=== PATIENT | male | born 1940 | race Caucasian/White ===

== ENCOUNTER 2017-04-07 13:09 | Inpatient (IN) ==
[2017-04-07] MEDS ORDERED: 0.9 % Sodium Chloride 1,000 ML IVC ONE (13:22)
[2017-04-07 13:34] LABS: Bilirubin,Urine Negative (Negative); Blood,Urine Negative (Negative); Clarity,Urine Cloudy (Clear); Color,Urine Yellow (Yellow); Glucose,Urine (UA) Normal (Normal); Ketones,Urine Negative (Negative); Leukocyte Esterase,Urine Negative (Negative); Nitrite,Urine Negative (Negative); PH,Urine 7.5 pH Units (5.0-8.0); Protein,Urine Negative (Neg-Trace); Specific Gravity,Urine 1.021 (1.010-1.025); Urobilinogen,Urine Normal (Normal)
--- NOTE | 2017-04-07 13:34 | Emergency Department Note ---
Disposition Clinical Impression: Hyponatremia, Generalized weakness Disposition: Admitted As Inpatient Condition: Fair Referrals: Kelly Willett MD [Primary Care Provider] - Forms: ED Satisfaction Letter Time of Disposition: 16:42 Weakness HPI - General Chief complaint: ED Weakness Stated complaint: weakness Time Seen by Provider: 04/07/17 13:13 Source: EMS Limitations: language barrier Nursing Notes Reviewed: Yes Vital Signs Reviewed: Yes - History of Present Illness HPI Narrative: The patient has a history of melanoma and he is currently undergoing chemotherapy with last dose about 1-1/2 weeks ago and was supposed to have another dose of chemotherapy today but he had too much weakness that he presented to the emergency department. His current weakness is present for the last 4 days and constant and nothing makes it better or worse and no medication specifically used. I did review the previous record and is seen here last month for similar symptoms. I did review the CT and MRI scans are done recently. The patient denies any vomiting or diarrhea, fevers. He does have melanoma on the left side of the forehead. No localized numbness or weakness of the extremities but does have generalized weakness. No slurred speech, facial droop or confusion. No rhinorrhea, cough, sneezing or blurred vision. No blood in the urine or stool. No pain of the extremities and no skin rash or bruising of the skin except for the melanoma on the left side of his scalp. Social history: Does occasionally smoke, no alcohol or drugs Pain Scale: 5 - Related Data Home Medications Medication Instructions Recorded Confirmed Budesonide/Formoterol 160/4.5 2 puff IH BIDR 05/06/15 04/07/17 [Symbicort 160/4.5] Bupropion HCl [Wellbutrin Xl] 300 mg PO QAM 05/06/15 04/07/17 Citalopram Hydrobromide [Celexa] 40 mg PO QAM 05/06/15 04/07/17 Montelukast [Singulair] 10 mg PO QPM 05/06/15 04/07/17 Ranitidine HCl [Zantac] 150 mg PO BID 05/06/15 04/07/17 Simvastatin [Zocor] 40 mg PO QPM 05/06/15 04/07/17 Albuterol Neb [Proventil Neb] 2.5 mg IH Q4HR PRN 07/01/15 04/07/17 Albuterol Sulfate [Albuterol 2 puff IH Q6HR PRN 07/01/15 04/07/17 Inhaler] Cholecalciferol (Vitamin D3) 2,000 unit PO DAILY 07/01/15 04/07/17 [Vitamin D3] Oxygen 2 l NS AD PRN 07/01/15 04/07/17 Tamsulosin [Flomax] 0.4 mg PO DAILY 09/09/15 04/07/17 Docusate Sodium [Stool Softener] 250 mg PO BID PRN 02/13/17 04/07/17 Dexamethasone [Decadron] 4 mg PO DAILY 04/07/17 04/07/17 Lactose-Reduced Food [Ensure 1 bottle PO QID 04/07/17 04/07/17 Liquid] Levothyroxine [Synthroid] 25 mcg PO 0630 04/07/17 04/07/17 Nitroglycerin [Nitrostat] 0.4 mg SL Q5M PRN 04/07/17 04/07/17 Previous Rx's Medication Instructions Recorded Aspirin Enteric Coated [Aspirin EC] 325 mg PO DAILY #21 tablet. 06/30/15 Allergies Allergy/AdvReac Type Severity Reaction Status Date / Time No Known Allergies Allergy Verified 09/09/15 06:55 Review of Systems: As Per HPI Past Medical History - Past Medical History Medical history: Reports: cancer, COPD, coronary artery disease, CVA, GERD, hyperlipidemia, hypertension, myocardial infarction, other Psychiatric history: Reports: anxiety, depression - Social History Smoking Status: Current some day smoker Smokeless Tobacco Status: No Alcohol use: Reports: none Drug use: Reports: none Physical Exam CONSTITUTIONAL: The patient is tired appearing, weak appearing, breathing comfortably, does have evidence of melanoma on the left side of the scalp. No focal neurologic signs. HEAD: Normocephalic; atraumatic. EYES: PERRL, EOMI, no scleral icterus NOSE: The nose is normal in appearance without rhinorrhea NECK: Supple without rigidity, no SANAM RESP: Normal chest excursion with respiration; breath sounds clear and equal bilaterally; no wheezes, rhonchi, or rales CARD: Regular rhythm, without murmurs, rub or gallop ABD: Non-distended; non-tender, soft, without rigidity, rebound or guarding SKIN: Normal for age and race; warm and dry; no apparent lesions, no rash NEUROLOGICAL: Patient is alert and oriented times three. Cranial nerves III- XII are intact. Sensory and motor functions are intact. Strength is 5/5 for flexion and extension in all 4 extremities. . Finger to nose testing is equal and normal bilaterally. Extremities: Pulses 2+ and equal all 4 extremities, no pain or swelling of the lower extremities - General Limitations: language barrier General appearance: alert Course Vital Signs Temperature 98.1 F 04/07/17 13:12 Pulse Rate 71 04/07/17 13:12 Respiratory Rate 16 04/07/17 13:12 Blood Pressure 164/113 04/07/17 13:12 O2 Sat by Pulse Oximetry 95 04/07/17 13:12 Temperature 98.1 F 04/07/17 13:12 Pulse Rate 71 04/07/17 13:12 Respiratory Rate 16 04/07/17 13:12 Blood Pressure 164/113 04/07/17 13:12 O2 Sat by Pulse Oximetry 95 04/07/17 13:12 Oxygen Delivery Oxygen Delivery Room Air Weakness - MDM Narrative Medical decision making narrative: I did labs ordered which are pending, chest x-ray, IV fluids and will reassess. The patient does not have any focal neurologic signs or symptoms so I will not get any imaging of the brain at this time. 1334 I did review the EKG done by triage does show normal sinus rhythm with a rate of 88 and some nonspecific T-wave changes which are likely baseline artifact. There are not anatomically consistent finding suggestive of ischemia. The patient's labs are normal except for some leukopenia and this can be further evaluated as an outpatient. I do not see evidence of pancreatitis. I will perform a rectal exam. 1425 I did review the lab results which do show hyponatremia and I did speak with the hospitalist who accepted the patient for admission because the patient's said she is unable to care for him at home. The liver a mobile home. He is not ambulatory an adequate degree. The patient does represent a significant fall risk. I discussed with the hospitalist but I will add on labs for SIADH and she will follow the results of these labs as inpatient 1642 - Medical Records Medical records reviewed: Yes I reviewed the patient's medical records. - Lab Data Lab results reviewed: Yes I reviewed the patient's lab results. Result diagrams: 04/07/17 14:03 04/07/17 14:03 Lab Results 04/07/17 04/07/17 04/07/17 Range/Units 13:19 13:19 14:03 WBC 13.5 H (4.3-11.1) K/mcL RBC 4.52 (4.19-5.50) M/mcL Hgb 14.0 (12.9-16.9) g/dL Hct 41.7 (37.5-50.1) % MCV 92.3 (83.0-100.0) fL MCH 31.0 (28.0-33.3) pg MCHC 33.6 (31.6-35.5) g/dL RDW 13.8 (11.5-14.5) % Plt Count 308 (140-400) K/mcL MPV 9.0 L (9.4-12.4) fL Immature Gran % 1.2 (0-4) % Seg Neutrophils % 80.9 % Lymphocytes % 10.9 % Monocytes % 5.9 % Eosinophils % 0.9 % Basophils % 0.2 % Neutrophils # 10.9 H (1.6-8.9) K/mcL Lymphocytes # 1.5 (0.6-4.6) K/mcL Monocytes # 0.8 (0.0-1.3) K/mcL Eosinophils # 0.1 (0.0-0.6) K/mcL Basophils # 0.0 (0.0-0.2) K/mcL Sodium (136-145) mEq/L Potassium (3.5-5.1) mEq/L Chloride (98-107) mEq/L Carbon Dioxide (23-29) mEq/L BUN (8-23) mg/dL Creatinine (0.70-1.30) mg/dL Est GFR ( Amer) (> 60) Est GFR (Non-Af Amer) (> 60) BUN/Creatinine Ratio (6-26) Glucose (70-105) mg/dL Calculated Osmolality (280-300) Calcium (8.6-10.3) mg/dL Total Bilirubin (0.3-1.0) mg/dL AST (13-39) Units/L ALT (7-52) Units/L Alkaline Phosphatase (34-104) Units/L Troponin I (< 0.04) ng/mL Serum Total Protein (6.4-8.9) g/dL Albumin (3.5-5.7) g/dL Globulin (2.4-3.5) g/dL Albumin/Globulin Ratio (1.1-2.2) Urine Color Yellow (Yellow) Urine Clarity Cloudy A (Clear) Urine pH 7.5 (5.0-8.0) pH Units Ur Specific [place] 1.021 (1.010-1.025) Urine Protein Negative (Neg-Trace) mg/dL Urine Glucose (UA) Normal (Normal) mg/dL Urine Ketones Negative (Negative) mg/dL Urine Blood Negative (Negative) Urine Nitrite Negative (Negative) Urine Bilirubin Negative (Negative) Urine Urobilinogen Normal (Normal) mg/dL Ur Leukocyte Esterase Negative (Negative) Urine Microscopic RBC 0-3 (0-3) per hpf Urine Microscopic WBC 0-3 (0-3) per hpf Ur Squamous Epith Cells Few (None-Few) per lpf Urine Bacteria Few (None-Few) per hpf Hyaline Casts None Seen (None-Few) per lpf Ur Culture Indicated? NO (NO) Urine Osmolality 533 (300-1090) mOsm/kg Urine Sodium 101.0 mEq/L 04/07/17 04/07/17 Range/Units 14:03 14:03 WBC (4.3-11.1) K/mcL RBC (4.19-5.50) M/mcL Hgb (12.9-16.9) g/dL Hct (37.5-50.1) % MCV (83.0-100.0) fL MCH (28.0-33.3) pg MCHC (31.6-35.5) g/dL RDW (11.5-14.5) % Plt Count (140-400) K/mcL MPV (9.4-12.4) fL Immature Gran % (0-4) % Seg Neutrophils % % Lymphocytes % % Monocytes % % Eosinophils % % Basophils % % Neutrophils # (1.6-8.9) K/mcL Lymphocytes # (0.6-4.6) K/mcL Monocytes # (0.0-1.3) K/mcL Eosinophils # (0.0-0.6) K/mcL Basophils # (0.0-0.2) K/mcL Sodium 128 L (136-145) mEq/L Potassium 4.2 (3.5-5.1) mEq/L Chloride 96 L (98-107) mEq/L Carbon Dioxide 28 (23-29) mEq/L BUN 13 (8-23) mg/dL Creatinine 0.67 L (0.70-1.30) mg/dL Est GFR ( Amer) > 60 (> 60) Est GFR (Non-Af Amer) > 60 (> 60) BUN/Creatinine Ratio 19 (6-26) Glucose 82 (70-105) mg/dL Calculated Osmolality 265 L (280-300) Calcium 8.2 L (8.6-10.3) mg/dL Total Bilirubin 0.3 (0.3-1.0) mg/dL AST 16 (13-39) Units/L ALT 13 (7-52) Units/L Alkaline Phosphatase 83 (34-104) Units/L Troponin I < 0.03 (< 0.04) ng/mL Serum Total Protein 5.7 L (6.4-8.9) g/dL Albumin 3.1 L (3.5-5.7) g/dL Globulin 2.6 (2.4-3.5) g/dL Albumin/Globulin Ratio 1.2 (1.1-2.2) Urine Color (Yellow) Urine Clarity (Clear) Urine pH (5.0-8.0) pH Units Ur Specific [place] (1.010-1.025) Urine Protein (Neg-Trace) mg/dL Urine Glucose (UA) (Normal) mg/dL Urine Ketones (Negative) mg/dL Urine Blood (Negative) Urine Nitrite (Negative) Urine Bilirubin (Negative) Urine Urobilinogen (Normal) mg/dL Ur Leukocyte Esterase (Negative) Urine Microscopic RBC (0-3) per hpf Urine Microscopic WBC (0-3) per hpf Ur Squamous Epith Cells (None-Few) per lpf Urine Bacteria (None-Few) per hpf Hyaline Casts (None-Few) per lpf Ur Culture Indicated? (NO) Urine Osmolality (300-1090) mOsm/kg Urine Sodium mEq/L - Radiology Data Radiology results reviewed: Yes I reviewed the patient's radiology results. Critical Care Time Critical Care Time: No
[2017-04-07 13:36] LABS: Hyaline Casts,Urine None Seen per lpf (None-Few); RBC,Urine 0-3 per hpf (0-3); WBC,Urine 0-3 per hpf (0-3)
[2017-04-07 13:50] LABS: Bacteria,Urine Few per hpf (None-Few); Squamous Epithelial Cell,Urine Few per lpf (None-Few)
[2017-04-07 14:09] LABS: Basophils % 0.2 %; Eosinophils # 0.1 K/mcL (0.0-0.6); Eosinophils % 0.9 %; Hematocrit 41.7 % (37.5-50.1); Immature Granulocytes % 1.2 % (0-4); Lymphocytes # 1.5 K/mcL (0.6-4.6); Lymphocytes % 10.9 %; Mean Corpuscular HGB Conc 33.6 g/dL (31.6-35.5); Mean Corpuscular Volume 92.3 fL (83.0-100.0); Monocytes # 0.8 K/mcL (0.0-1.3); Monocytes % 5.9 %; Neutrophils # 10.9 K/mcL (1.6-8.9); Platelet Count 308 K/mcL (140-400); Red Blood Count 4.52 M/mcL (4.19-5.50); Red Cell Distribution Width 13.8 % (11.5-14.5); Segmented Neutrophils % 80.9 %
[2017-04-07 14:23] LABS: Alanine Aminotransferase 13 Units/L (7-52); Albumin 3.1 g/dL (3.5-5.7); Albumin/Globulin Ratio 1.2 (1.1-2.2); Alkaline Phosphatase 83 Units/L (34-104); Aspartate Amino Transferase 16 Units/L (13-39); BUN/Creatinine Ratio 19 (6-26); Bilirubin,Total 0.3 mg/dL (0.3-1.0); Blood Urea Nitrogen 13 mg/dL (8-23); Calcium 8.2 mg/dL (8.6-10.3); Carbon Dioxide 28 mEq/L (23-29); Chloride 96 mEq/L (98-107); Globulin 2.6 g/dL (2.4-3.5); Glucose 82 mg/dL (70-105); Osmolality,Calculated 265 (280-300); Potassium 4.2 mEq/L (3.5-5.1); Sodium 128 mEq/L (136-145); Total Protein 5.7 g/dL (6.4-8.9); eGFR For African Americans > 60 (> 60); eGFR For Non-African Americans > 60 (> 60)
--- NOTE | 2017-04-07 15:51 | Internal Med History&Physical ---
Date of Encounter: 05/07/17 Time of Encounter: 15:50 Assessment and Plan (1) Generalized weakness Status: Chronic The patient neuro exam is intact, most likely his weakens is 2/2 hos allover medical condition including recent chemotherapy We will consult PT and OT. (2) HLD (hyperlipidemia) Status: Chronic Cont statin and obtain FLP in Am Qualifiers: Hyperlipidemia type: mixed hyperlipidemia Qualified Code(s): E78.2 - Mixed hyperlipidemia (3) COPD (chronic obstructive pulmonary disease) Status: Chronic We will cont home meds and start PRN duneb Qualifiers: COPD type: unspecified COPD Qualified Code(s): J44.9 - Chronic obstructive pulmonary disease, unspecified (4) Hyponatremia Status: Acute Hypovolumic hyponatremia vs SIADH. We will obtain urine osm and serum osm as well as Urine lyts and consult nephro (5) DVT prophylaxis Status: Acute We will place [facility] Internal Medicine - H&P: HPI Chief complaint: weeknes History of present illness: Mr. Florence is a 77 year old male with a history of melanoma and he is currently undergoing chemotherapy with last dose about 1-1/2 weeks ago who presented with 4 days h/o constant weakness. The patient denies any vomiting or diarrhea, fevers. No localized numbness or weakness of the extremities but does have generalized weakness. No slurred speech, facial droop or confusion. No rhinorrhea, cough, sneezing or blurred vision. No blood in the urine or stool. No pain of the extremities and no skin rash or bruising of the skin except for the melanoma on the left side of his scalp. He and his are interested in SNF placement. Past Med Surg Social Fam HX - Past Medical History Medical history: cancer, COPD, coronary artery disease, CVA, GERD, hyperlipidemia, hypertension, myocardial infarction, other Psychiatric history: anxiety, depression - Social History Smoking Status: Current some day smoker Smokeless Tobacco Status: No Alcohol use: none Drug use: none - Family History Mother Living Status: Hx Family Cardiac Disorders: No Hx Family Respiratory Disorders: No Hx Family Cancer: No Hx Family GI Disorders: No Hx Family Endocrine Disorder: No Hx Family Neuromuscular Disorders: No Hx Family Neurologic Disorders: No Hx Family HEENT Disorders: No Hx Family Autoimmune Disorders: No Internal Medicine - H&P: Meds Budesonide/Formoterol 160/4.5 [Symbicort 160/4.5] 2 puff IH BIDR 05/06/15 [ History] Bupropion HCl [Wellbutrin Xl] 300 mg PO QAM 05/06/15 [History] Citalopram Hydrobromide [Celexa] 40 mg PO QAM 05/06/15 [History] Montelukast [Singulair] 10 mg PO QPM 05/06/15 [History] Ranitidine HCl [Zantac] 150 mg PO BID 05/06/15 [History] Simvastatin [Zocor] 40 mg PO QPM 05/06/15 [History] Aspirin Enteric Coated [Aspirin EC] 325 mg PO DAILY #21 tablet. 06/30/15 [Rx] Albuterol Neb [Proventil Neb] 2.5 mg IH Q4HR PRN 07/01/15 [History] Albuterol Sulfate [Albuterol Inhaler] 2 puff IH Q6HR PRN 07/01/15 [History] Cholecalciferol (Vitamin D3) [Vitamin D3] 2,000 unit PO DAILY 07/01/15 [History] Oxygen 2 l NS AD PRN 07/01/15 [History] Tamsulosin [Flomax] 0.4 mg PO DAILY 09/09/15 [History] Docusate Sodium [Stool Softener] 250 mg PO BID PRN 02/13/17 [History] Dexamethasone [Decadron] 4 mg PO DAILY 04/07/17 [History] Lactose-Reduced Food [Ensure Liquid] 1 bottle PO QID 04/07/17 [History] Levothyroxine [Synthroid] 25 mcg PO 0630 04/07/17 [History] Nitroglycerin [Nitrostat] 0.4 mg SL Q5M PRN 04/07/17 [History] 3 Allergy/AdvReac Type Severity Reaction Status Date / Time No Known Allergies Allergy Verified 09/09/15 06:55 All Systems PM: A 10-system review of systems was performed and is negative for pertinent findings except as documented above in the HPI. - Constitutional Constitutional: fatigue, malaise, weakness, no chills, no fever(s), no night sweats - Cardiovascular Cardiovascular ROS IM: no chest pain, no diaphoresis, no dyspnea, no lightheadedness, no palpitations, no syncope - Respiratory Respiratory: no cough, no dyspnea, no wheezing, no excessive phlegm production - Gastrointestinal Gastrointestinal: no abdominal pain, no diarrhea, no hematemesis, no hematochezia, no melena, no nausea, no vomiting - Integumentary Integumentary IM: non-healing lesions - Neurological Neurological ROS: no confusion, no convulsions, no focal weakness, no numbness, no tingling, no tremor(s) - Constitutional Vitals: Temp Pulse Resp BP Pulse Ox 98.1 F 71 16 164/113 95 04/07/17 13:12 04/07/17 13:12 04/07/17 13:12 04/07/17 13:12 04/07/17 13:12 General appearance: Present: A&O X 3, pleasant - Head Head exam: Present: atraumatic, normocephalic - Neck Neck exam general surgery: Present: supple, trachea midline. Absent: lymphadenopathy - Respiratory Respiratory exam: Present: CTAB. Absent: accessory muscle use, rales, rhonchi, wheezes - Cardiovascular Cardiovascular exam: Present: RRR, +S1, +S2. Absent: diastolic murmur, gallop, rubs, systolic murmur - GI/Abdominal GI/Abdominal exam: Present: normal bowel sounds, soft, no peritoneal signs. Absent: distended, tenderness - Extremities Exam Extremities exam: Present: warm, radial pulses palpable and symmetrical. Absent : calf tenderness, cyanotic, pedal edema Internal Med - H&P Results - Labs CBC & Chem 7: 04/08/17 07:56 04/09/17 07:12 Labs: Short CBC 04/07/17 Range/Units 14:03 WBC 13.5 H (4.3-11.1) K/mcL Hgb 14.0 (12.9-16.9) g/dL Hct 41.7 (37.5-50.1) % Plt Count 308 (140-400) K/mcL Neutrophils # 10.9 H (1.6-8.9) K/mcL BMP 04/07/17 14:03 Sodium 128 L Potassium 4.2 Chloride 96 L Carbon Dioxide 28 BUN 13 Creatinine 0.67 L Glucose 82 Calcium 8.2 L Cardiac Enzymes 04/07/17 Range/Units 14:03 Troponin I < 0.03 (< 0.04) ng/mL Liver Function 04/07/17 Range/Units 14:03 Total Bilirubin 0.3 (0.3-1.0) mg/dL AST 16 (13-39) Units/L ALT 13 (7-52) Units/L Alkaline Phosphatase 83 (34-104) Units/L Albumin 3.1 L (3.5-5.7) g/dL Urine 04/07/17 Range/Units 13:19 Urine Color Yellow (Yellow) Urine Clarity Cloudy A (Clear) Urine pH 7.5 (5.0-8.0) pH Units Ur Specific [place] 1.021 (1.010-1.025) Urine Protein Negative (Neg-Trace) mg/dL Urine Glucose (UA) Normal (Normal) mg/dL - Impressions ITS Impressions Chest X-Ray 04/07/17 13:20 IMPRESSION: COPD. No acute cardiopulmonary disease. D/ / Deyvi Wong MD / Deyvi Wong MD Interpreting Provider: Deyvi Wong MD
[2017-04-07] MEDS ORDERED: *HR* Morphine 2 MG/ML SYRINGE IVP PRN (17:05)
[2017-04-07] MEDS ORDERED: Naloxone 0.4 MG/ML INJ IVP PRN (17:05)
[2017-04-07] MEDS ORDERED: Acetaminophen 325 MG TABLET PO PRN (17:05)
[2017-04-07] MEDS ORDERED: Ondansetron ODT 4 MG TAB.RAPDIS SL PRN (17:05)
[2017-04-07] MEDS ORDERED: NON-FORMULARY MEDICATION 1 EACH EACH (Oxygen [Oxygen] 2 L) NS PRN (17:25)
[2017-04-07] MEDS ORDERED: Nitroglycerin 0.4 MG TAB.SUBL SL PRN (17:25)
[2017-04-07] MEDS: 0.9 % Sodium Chloride 1,000 ML IVC SCH (19:53)
[2017-04-07] MEDS ORDERED: Albuterol 2.5 MG/3 ML NEBULIZER IH PRN (20:00)
[2017-04-07] MEDS: Famotidine 20 MG TABLET PO SCH (22:47)
[2017-04-07] MEDS: Budesonide/Formoterol 160/4.5 MDI IH SCH (22:53)
[2017-04-08 04:13] LABS: Bilirubin,Urine Negative (Negative); Blood,Urine Negative (Negative); Clarity,Urine Clear (Clear); Color,Urine Yellow (Yellow); Glucose,Urine (UA) Normal (Normal); Ketones,Urine Negative (Negative); Leukocyte Esterase,Urine Negative (Negative); Nitrite,Urine Negative (Negative); Protein,Urine Negative (Neg-Trace); Specific Gravity,Urine 1.009 (1.010-1.025); Urobilinogen,Urine Normal (Normal)
[2017-04-08] MEDS: Levothyroxine 25 MCG TABLET PO SCH (05:28)
[2017-04-08] MEDS: Famotidine 20 MG TABLET PO SCH ×2 (07:58→20:17)
[2017-04-08] MEDS: Cholecalciferol (D-3) 1,000 UNIT TABLET PO SCH (07:58)
[2017-04-08] MEDS: Aspirin Enteric Coated 325 MG Tablet PO SCH (07:58)
[2017-04-08] MEDS: BuPROPion XL (24 HR) 150 MG TABLET PO SCH (07:58)
[2017-04-08 08:10] LABS: Basophils # 0.1 K/mcL (0.0-0.2); Basophils % 0.4 %; Eosinophils # 0.1 K/mcL (0.0-0.6); Eosinophils % 0.9 %; Hematocrit 41.2 % (37.5-50.1); Hemoglobin 14.2 g/dL (12.9-16.9); Immature Granulocytes % 0.8 % (0-4); Lymphocytes # 2.4 K/mcL (0.6-4.6); Lymphocytes % 17.4 %; Mean Corpuscular HGB Conc 34.5 g/dL (31.6-35.5); Mean Corpuscular Hemoglobin 31.9 pg (28.0-33.3); Mean Corpuscular Volume 92.6 fL (83.0-100.0); Mean Platelet Volume 9.1 fL (9.4-12.4); Monocytes # 0.8 K/mcL (0.0-1.3); Neutrophils # 10.4 K/mcL (1.6-8.9); Platelet Count 311 K/mcL (140-400); Red Blood Count 4.45 M/mcL (4.19-5.50); Red Cell Distribution Width 13.6 % (11.5-14.5); Segmented Neutrophils % 74.5 %
[2017-04-08 08:15] LABS: Prothrombin Time 10.5 Seconds (9.4-12.1)
[2017-04-08 08:17] LABS: Activated Partial Thrombo Time 32.2 Seconds (26.0-36.0)
[2017-04-08] MEDS: Budesonide/Formoterol 160/4.5 MDI IH SCH ×2 (08:21→19:55)
[2017-04-08 08:28] LABS: Alanine Aminotransferase 14 Units/L (7-52); Albumin/Globulin Ratio 1.2 (1.1-2.2); Alkaline Phosphatase 82 Units/L (34-104); Aspartate Amino Transferase 17 Units/L (13-39); BUN/Creatinine Ratio 12 (6-26); Bilirubin,Total 0.4 mg/dL (0.3-1.0); Blood Urea Nitrogen 9 mg/dL (8-23); Calcium 8.3 mg/dL (8.6-10.3); Carbon Dioxide 28 mEq/L (23-29); Chloride 96 mEq/L (98-107); Chol/HDL Ratio 2.9 (0-4.9); Cholesterol 193 mg/dL (< 200); Globulin 2.6 g/dL (2.4-3.5); Glucose 81 mg/dL (70-105); HDL Cholesterol 67 mg/dL (40-59); LDL Cholesterol,Calculated 103 mg/dL (0-99); Magnesium 1.7 mg/dL (1.6-2.6); Osmolality,Calculated 264 (280-300); Phosphorous 1.9 mg/dL (2.7-4.5); Potassium 4.2 mEq/L (3.5-5.1); Sodium 128 mEq/L (136-145); Total Protein 5.6 g/dL (6.4-8.9); Triglycerides 113 mg/dL (< 150); eGFR For African Americans > 60 (> 60); eGFR For Non-African Americans > 60 (> 60)
--- NOTE | 2017-04-08 11:11 | Nephrology Consult Note ---
Date of Encounter: 04/08/17 Time of Encounter: 11:05 Assessment and Plan (1) Hyponatremia Current Visit: Yes Status: Acute Sodium was 128 on presentation, repeat this morning is 128. Patient's weakness is probably not entirely explained by his mild hyponatremia, his underlying cancer chemotherapy treatments are also likely contributing. Urine sodium was 101, urine osmolality is 533. Patient appears hypovolemic on exam. Hypovolemia versus SIADH in the differential. Recommend continuing fluid hydration with normal saline at 75 mL per hour. We will recheck sodium this afternoon to ensure that it is not decreasing. Encourage by mouth intake. We will continue to follow along. (2) COPD (chronic obstructive pulmonary disease) Current Visit: No Status: Chronic Management per primary team. Qualifiers: COPD type: unspecified COPD Qualified Code(s): J44.9 - Chronic obstructive pulmonary disease, unspecified History of Present Illness - Reason for Consult Consult date: 04/08/17 hyponatremia Requesting physician: Sandra Jamil - Chief Complaint Weakness - History of Present Illness Patient is a 77-year-old male with history of melanoma, hypothyroidism who presents with weakness. Patient reports that he is feeling mildly weak for the last couple days as she normally does after his chemotherapy treatments however the reports that he has been profoundly weak, worse than normal. He was having difficulty getting up and going to bathroom. Patient's reports decreased oral intake. Denies nausea, vomiting, diarrhea, new medications. Past Med Surg Social Fam HX - Past Medical History Medical history: cancer, COPD, coronary artery disease, CVA, GERD, hyperlipidemia, hypertension, myocardial infarction, other Psychiatric history: anxiety, depression - Social History Smoking Status: Current some day smoker Smokeless Tobacco Status: No Alcohol use: none Drug use: none - Family History Mother Living Status: Hx Family Cardiac Disorders: No Hx Family Respiratory Disorders: No Hx Family Cancer: No Hx Family GI Disorders: No Hx Family Endocrine Disorder: No Hx Family Neuromuscular Disorders: No Hx Family Neurologic Disorders: No Hx Family HEENT Disorders: No Hx Family Autoimmune Disorders: No Medications and Allergies Budesonide/Formoterol 160/4.5 [Symbicort 160/4.5] 2 puff IH BIDR 05/06/15 [ History] Bupropion HCl [Wellbutrin Xl] 300 mg PO QAM 05/06/15 [History] Citalopram Hydrobromide [Celexa] 40 mg PO QAM 05/06/15 [History] Montelukast [Singulair] 10 mg PO QPM 05/06/15 [History] Ranitidine HCl [Zantac] 150 mg PO BID 05/06/15 [History] Simvastatin [Zocor] 40 mg PO QPM 05/06/15 [History] Aspirin Enteric Coated [Aspirin EC] 325 mg PO DAILY #21 tablet. 06/30/15 [Rx] Albuterol Neb [Proventil Neb] 2.5 mg IH Q4HR PRN 07/01/15 [History] Albuterol Sulfate [Albuterol Inhaler] 2 puff IH Q6HR PRN 07/01/15 [History] Cholecalciferol (Vitamin D3) [Vitamin D3] 2,000 unit PO DAILY 07/01/15 [History] Oxygen 2 l NS AD PRN 07/01/15 [History] Tamsulosin [Flomax] 0.4 mg PO DAILY 09/09/15 [History] Docusate Sodium [Stool Softener] 250 mg PO BID PRN 02/13/17 [History] Dexamethasone [Decadron] 4 mg PO DAILY 04/07/17 [History] Lactose-Reduced Food [Ensure Liquid] 1 bottle PO QID 04/07/17 [History] Levothyroxine [Synthroid] 25 mcg PO 0630 04/07/17 [History] Nitroglycerin [Nitrostat] 0.4 mg SL Q5M PRN 04/07/17 [History] 3 Allergy/AdvReac Type Severity Reaction Status Date / Time No Known Allergies Allergy Verified 09/09/15 06:55 Review of Systems All Systems: reviewed and no additional remarkable complaints except as stated Exam - Vital Signs Vital signs: Initial Vital Signs Temp Pulse Resp BP Pulse Ox 98.1 F 71 16 164/113 95 04/07/17 13:12 04/07/17 13:12 04/07/17 13:12 04/07/17 13:12 04/07/17 13:12 Vital Signs - Last 8 Hours Temp Pulse Resp BP Pulse Ox 04/08/17 10:46 98.0 F 65 18 154/90 95 04/08/17 08:06 96 04/08/17 07:10 98.0 F 69 20 162/90 96 04/08/17 04:31 98.6 F 64 16 150/84 94 Intake and Output 04/07/17 04/08/17 04/08/17 23:59 07:59 15:59 Intake Total 1000 / 1000 360 / 360 Output Total 100 / 100 675 / 675 Balance 900 / 900 -315 / -315 Intake: IV Fluids 1000 / 1000 0.9 % Sodium Chloride 1,000 ML 1000 / 1000 @ 3750 mls/hr IVC .Q16M ONE Rx# :[id number] Oral 360 / 360 Output: Urine 100 / 100 675 / 675 Other: Meal Breakfast Percent of Meal Consumed 100% # Voids 1 - General Appearance General appearance: well-developed, appears started age, frail EENT: ATNC, mucous membranes dry Neck: supple Respiratory: clear Cardiology: no edema, regular rate, regular rhythm Gastrointestinal: normoactive bowel sounds, no tenderness Integumentary: no rash, warm and dry Neurologic: no focal deficit, alert and oriented x3, strength 5/5 Musculoskeletal: no erythema, no cyanosis Results - Lab Results 04/08/17 07:56 04/08/17 07:56 Most recent lab results Calcium 8.3 mg/dL (8.6-10.3) L 04/08/17 07:56 Phosphorus 1.9 mg/dL (2.7-4.5) L 04/08/17 07:56 Magnesium 1.7 mg/dL (1.6-2.6) 04/08/17 07:56 Urine Sodium 101.0 mEq/L 04/07/17 13:19 Consult Discharge Plan - Plan Referrals: Kelly Willett MD [Primary Care Provider] - (web request sent on 04/08/17)
[2017-04-08] MEDS ORDERED: 0.9 % Sodium Chloride 1,000 ML IVC SCH (11:15)
[2017-04-08] MEDS: 0.9 % Sodium Chloride 1,000 ML IVC SCH (13:47)
--- NOTE | 2017-04-08 14:21 | Internal Med Progress Note ---
Date of Encounter: 04/08/17 Time of Encounter: 14:21 - Assessment and plan (1) Hyponatremia Current Visit: Yes Status: Acute Assessment and plan: Hypovolemic vs SIADH. Remains hyponatremic with sodium of 128 despite IV saline infusion. Nephrology consultation. Will follow recommendations. Urine osmolality and urine sodium levels are high, while plasma osmolarity and plasma sodium levels suggesting diagnosis of SIADH. Will place patient on free water restriction. (2) Generalized weakness Current Visit: Yes Status: Chronic Assessment and plan: Could be related to hyponatremia along with underlying melanoma. PTOT evaluation pending. Continue supportive care. Fall precautions. 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 (3) COPD (chronic obstructive pulmonary disease) Current Visit: Yes Status: Chronic Assessment and plan: Not significant exacerbation. Continue bronchodilators and Symbicort Qualifiers: COPD type: unspecified COPD Qualified Code(s): J44.9 - Chronic obstructive pulmonary disease, unspecified (4) HLD (hyperlipidemia) Current Visit: Yes Status: Chronic Assessment and plan: Continue zocor Qualifiers: Hyperlipidemia type: mixed hyperlipidemia Qualified Code(s): E78.2 - Mixed hyperlipidemia (5) DVT prophylaxis Current Visit: Yes Status: Acute Assessment and plan: With subcutaneous heparin - Subjective Interval history: Patient is awake and alert. Sitting up in bed. Feels better today. Complains of generalized weakness. No focal weakness. - Constitutional Vitals: Temp Pulse Resp BP Pulse Ox 98.0 F 65 18 154/90 95 04/08/17 10:46 04/08/17 10:46 04/08/17 10:46 04/08/17 10:46 04/08/17 10:46 General appearance: Present: A&O X 3, pleasant, answers questions appropriately - Head Additional comments: Melanoma spot on left scalp. Covered with bandage at this time. - Neck Neck exam general surgery: Present: supple, trachea midline. Absent: lymphadenopathy - Respiratory Respiratory exam: Present: CTAB. Absent: accessory muscle use, rales, rhonchi, wheezes - Cardiovascular Cardiovascular exam: Present: RRR, +S1, +S2. Absent: diastolic murmur, gallop, rubs, systolic murmur - GI/Abdominal GI/Abdominal exam: Present: normal bowel sounds, soft, no peritoneal signs. Absent: distended, tenderness - Extremities Exam Extremities exam: Present: warm, radial pulses palpable and symmetrical. Absent : calf tenderness, cyanotic, pedal edema - Neurological Exam Neurological exam: Present: alert, CN II-XII intact, oriented X3, no focal deficits, strengths equal and symetr throughout. Absent: facial droop, speech deficit - Skin Skin exam: Present: dry, intact Internal Medicine: Result - Labs CBC & Chem 7: 04/08/17 07:56 04/08/17 07:56 Labs: Short CBC 04/08/17 Range/Units 07:56 WBC 13.9 H (4.3-11.1) K/mcL Hgb 14.2 (12.9-16.9) g/dL Hct 41.2 (37.5-50.1) % Plt Count 311 (140-400) K/mcL Neutrophils # 10.4 H (1.6-8.9) K/mcL BMP 04/08/17 07:56 Sodium 128 L Potassium 4.2 Chloride 96 L Carbon Dioxide 28 BUN 9 Creatinine 0.73 Glucose 81 Calcium 8.3 L Cardiac Enzymes 04/07/17 04/08/17 Range/Units 21:17 07:56 Troponin I < 0.03 < 0.03 (< 0.04) ng/mL Liver Function 04/08/17 Range/Units 07:56 Total Bilirubin 0.4 (0.3-1.0) mg/dL AST 17 (13-39) Units/L ALT 14 (7-52) Units/L Alkaline Phosphatase 82 (34-104) Units/L Albumin 3.0 L (3.5-5.7) g/dL Urine 04/08/17 Range/Units 04:03 Urine Color Yellow (Yellow) Urine Clarity Clear (Clear) Urine pH 7.0 (5.0-8.0) pH Units Ur Specific Jelm 1.009 L (1.010-1.025) Urine Protein Negative (Neg-Trace) mg/dL Urine Glucose (UA) Normal (Normal) mg/dL - ABG Interpretation ABG results: PT/INR, D-dimer PT 10.5 Seconds (9.4-12.1) 04/08/17 07:56 Consult Discharge Plan - Plan Referrals: Kelly Willett MD [Primary Care Provider] - (web request sent on 04/08/17)
[2017-04-08] MEDS: *HR* Heparin 5,000 UNIT/ML VIAL SQ SCH (17:17)
--- NOTE | 2017-04-08 19:48 | Electrocardiograph Report ---
[address] [address] Test Date: 2017-04-07 Pat Name: Cosmo Florence Department: 103 Room: 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
[2017-04-09] MEDS: *HR* Heparin 5,000 UNIT/ML VIAL SQ SCH ×2 (05:21→17:47)
[2017-04-09] MEDS: Levothyroxine 25 MCG TABLET PO SCH (06:06)
[2017-04-09 07:35] LABS: BUN/Creatinine Ratio 12 (6-26); Blood Urea Nitrogen 9 mg/dL (8-23); Calcium 8.5 mg/dL (8.6-10.3); Carbon Dioxide 30 mEq/L (23-29); Chloride 94 mEq/L (98-107); Glucose 88 mg/dL (70-105); Osmolality,Calculated 264 (280-300); Sodium 128 mEq/L (136-145); eGFR For African Americans > 60 (> 60); eGFR For Non-African Americans > 60 (> 60)
[2017-04-09] MEDS: Budesonide/Formoterol 160/4.5 MDI IH SCH ×2 (07:52→21:30)
[2017-04-09] MEDS: BuPROPion XL (24 HR) 150 MG TABLET PO SCH (09:50)
[2017-04-09] MEDS: Famotidine 20 MG TABLET PO SCH ×2 (09:50→20:23)
[2017-04-09] MEDS: Cholecalciferol (D-3) 1,000 UNIT TABLET PO SCH (09:50)
[2017-04-09] MEDS: Aspirin Enteric Coated 325 MG Tablet PO SCH (09:50)
--- NOTE | 2017-04-09 13:23 | Nephrology Progress Note ---
Date of Encounter: 04/09/17 Time of Encounter: 13:21 - Assessment and Plan (1) Hyponatremia Current Visit: Yes Status: Acute Patient remains hyponatremic with sodium essentially unchanged at 128. This is despite fluid hydration. This is more indicative of an SIADH picture now that the patient's volume has been restored. Agree with fluid restriction. If sodium does not improve can consider tolvaptan however we do agree with more conservative measures at this time. We will continue to follow. (2) COPD (chronic obstructive pulmonary disease) Current Visit: Yes Status: Chronic Further management per primary Qualifiers: COPD type: unspecified COPD Qualified Code(s): J44.9 - Chronic obstructive pulmonary disease, unspecified (3) Melanoma Current Visit: Yes Status: Acute Qualifiers: Melanoma location: scalp Qualified Code(s): C43.4 - Malignant melanoma of scalp and neck Subjective Principal diagnosis: Hyponatremia Interval history: Patient seen and examined at bedside. Patient states that he feels a little better today. He still reports feeling weak today but is able to get up and go to the bathroom. He denies confusion, numbness, tingling, chest pain, shortness of breath, nausea, vomiting, diarrhea. Objective - Vital Signs Vital signs: Vital Signs Temp Pulse Resp BP Pulse Ox 04/09/17 11:13 97.8 F 64 17 173/81 90 04/09/17 07:54 18 92 04/09/17 07:48 97.6 F 74 18 171/95 92 04/09/17 07:22 91 04/09/17 03:02 98.3 F 62 17 168/85 94 04/08/17 23:00 97.8 F 66 17 157/83 97 04/08/17 20:22 95 04/08/17 19:55 16 95 04/08/17 19:40 98.4 F 74 17 147/86 95 04/08/17 17:27 97.7 F 78 22 144/86 95 Intake and Output 04/08/17 04/09/17 04/09/17 23:59 07:59 15:59 Intake Total 240 / 240 200 / 200 Output Total 1300 / 1300 Balance 240 / 240 -1100 / -1100 Intake: Oral 240 / 240 200 / 200 Output: Urine 1300 / 1300 Other: Meal Dinner Percent of Meal Consumed 75% Stool Size Small Moderate Moderate Stool Consistency soft formed soft formed Stool Characteristics Normal for Patient Stool Color Brown Brown Brown # Voids 1 # Urine Diapers 1 # Bowel Movements 2 # Bowel Movement Diapers 1 1 Weight 63.7 kg Patient Weight 04/09/17 23:59 Weight 63.7 kg - General Appearance General appearance: Present: well-developed, well-nourished, appears started age EENT: Present: ATNC, mucous membranes moist Neck: Present: supple Respiratory: Present: clear Cardiology: Present: no edema, regular rate, regular rhythm Gastrointestinal: Present: normoactive bowel sounds, no tenderness Integumentary: Present: no rash, warm and dry Neurologic: Present: no focal deficit, alert and oriented x3 Musculoskeletal: Present: no erythema, no cyanosis, no clubbing - Lab 04/08/17 07:56 04/09/17 07:12 Most recent lab results Calcium 8.5 mg/dL (8.6-10.3) L 04/09/17 07:12 Phosphorus 1.9 mg/dL (2.7-4.5) L 04/08/17 07:56 Magnesium 1.7 mg/dL (1.6-2.6) 04/08/17 07:56 Urine Sodium 101.0 mEq/L 04/07/17 13:19 Consult Discharge Plan - Plan Referrals: Kelly Willett MD [Primary Care Provider] - 04/15/17 3:00 pm ()
--- NOTE | 2017-04-09 15:31 | Internal Med Progress Note ---
Date of Encounter: 04/09/17 Time of Encounter: 10:30 - Assessment and plan (1) Hyponatremia Current Visit: Yes Status: Acute Assessment and plan: Concerning for SIADH. Patient placed on free water restriction. Sodium levels remained stable. Nephrology following. (2) Generalized weakness Current Visit: Yes Status: Chronic Assessment and plan: Evaluated by physical therapy. Recommended placement to skilled rehabilitation. offal worker working on this. (3) Essential hypertension Current Visit: Yes Status: Acute Assessment and plan: Blood pressure is uncontrolled. Patient not on any medications at home. We will start him on lisinopril at low-dose. Monitor blood pressure closely. Patient and reported that patient was previously on multiple antihypertensives but they were held as his blood pressure became too low. (4) COPD (chronic obstructive pulmonary disease) Current Visit: Yes Status: Chronic Assessment and plan: Not in acute exacerbation. Continue bronchodilators as needed. Qualifiers: COPD type: unspecified COPD Qualified Code(s): J44.9 - Chronic obstructive pulmonary disease, unspecified (5) HLD (hyperlipidemia) Current Visit: Yes Status: Chronic Assessment and plan: Continue Zocor Qualifiers: Hyperlipidemia type: mixed hyperlipidemia Qualified Code(s): E78.2 - Mixed hyperlipidemia (6) DVT prophylaxis Current Visit: Yes Status: Acute Assessment and plan: On subcutaneous heparin - Subjective Interval history: Patient is currently lying in bed. Denies any new complaints at this time. Continues to have generalized overall weakness. Denies any shortness of breath. No chest pain reported. Tolerating diet well. - Constitutional Vitals: Temp Pulse Resp BP Pulse Ox 97.8 F 64 17 173/81 90 04/09/17 11:13 04/09/17 11:13 04/09/17 11:13 04/09/17 11:13 04/09/17 11:13 General appearance: Present: A&O X 3, pleasant, answers questions appropriately - Head Additional comments: Left-sided scalp melanoma present. Covered with bandage. - Neck Neck exam general surgery: Present: supple, trachea midline. Absent: lymphadenopathy - Respiratory Respiratory exam: Present: CTAB. Absent: accessory muscle use, rales, rhonchi, wheezes - Cardiovascular Cardiovascular exam: Present: RRR, +S1, +S2. Absent: diastolic murmur, gallop, rubs, systolic murmur - GI/Abdominal GI/Abdominal exam: Present: normal bowel sounds, soft, no peritoneal signs. Absent: distended, tenderness - Extremities Exam Extremities exam: Present: warm, radial pulses palpable and symmetrical. Absent : calf tenderness, cyanotic, pedal edema - Neurological Exam Neurological exam: Present: CN II-XII intact, oriented X3, no focal deficits. Absent: facial droop, speech deficit - Skin Skin exam: Present: dry, intact Internal Medicine: Result - Labs CBC & Chem 7: 04/08/17 07:56 04/09/17 07:12 Labs: BMP 04/08/17 04/09/17 15:12 07:12 Sodium 127 L 128 L Potassium 4.0 Chloride 94 L Carbon Dioxide 30 H BUN 9 Creatinine 0.73 Glucose 88 Calcium 8.5 L Cardiac Enzymes 04/08/17 Range/Units 15:12 Troponin I < 0.03 (< 0.04) ng/mL - ABG Interpretation ABG results: PT/INR, D-dimer PT 10.5 Seconds (9.4-12.1) 04/08/17 07:56 Consult Discharge Plan - Plan Referrals: Kelly Willett MD [Primary Care Provider] - 04/15/17 3:00 pm ()
[2017-04-10] MEDS: Levothyroxine 25 MCG TABLET PO SCH (06:00)
[2017-04-10] MEDS: *HR* Heparin 5,000 UNIT/ML VIAL SQ SCH ×2 (06:00→18:18)
[2017-04-10] MEDS: Budesonide/Formoterol 160/4.5 MDI IH SCH ×2 (08:23→21:11)
[2017-04-10] MEDS: Aspirin Enteric Coated 325 MG Tablet PO SCH (10:35)
[2017-04-10] MEDS: Famotidine 20 MG TABLET PO SCH ×2 (10:35→20:33)
[2017-04-10] MEDS: Cholecalciferol (D-3) 1,000 UNIT TABLET PO SCH (10:35)
[2017-04-10] MEDS: BuPROPion XL (24 HR) 150 MG TABLET PO SCH (10:35)
--- NOTE | 2017-04-10 12:28 | Event Note ---
Date of Encounter: 04/10/17 Time of Encounter: 10:55 Nephrology Pt refused to have labs drawn today. I discussed with the pt about the importance of monitoring his Na. He also did not allow me to examine him today. In the meantime, since I cannot safely monitor his PNa levels, I do not recommend giving Tolvaptan. Continue the Fluid Restriction. Will check back tomorrow.
--- NOTE | 2017-04-10 14:59 | Internal Med Progress Note ---
Date of Encounter: 04/10/17 Time of Encounter: 08:40 - Assessment and plan (1) Hyponatremia Current Visit: Yes Status: Acute Assessment and plan: Possible hypovolemia vs SIADH Concerning for SIADH - Patient placed on free water restriction Sodium levels remained stable - patient has refused morning labs today Nephrology following Repeat labs in a.m., monitor closely (2) Generalized weakness Current Visit: Yes Status: Chronic Assessment and plan: Possibly related to hyponatremia and underlying malignant melanoma Evaluated by PT/OT - Recommended placement to skilled rehabilitation child care worker consult (3) COPD (chronic obstructive pulmonary disease) Current Visit: Yes Status: Chronic Assessment and plan: Stable, not in exacerbation Continue Proventil as needed, Symbicort Qualifiers: COPD type: unspecified COPD Qualified Code(s): J44.9 - Chronic obstructive pulmonary disease, unspecified (4) HLD (hyperlipidemia) Current Visit: Yes Status: Chronic Assessment and plan: Continue Zocor Qualifiers: Hyperlipidemia type: mixed hyperlipidemia Qualified Code(s): E78.2 - Mixed hyperlipidemia (5) Essential hypertension Current Visit: Yes Status: Acute Assessment and plan: Essential hypertension, controlled, monitor Continue Zestril that has been started on this admission, IV Hydralazine PRN (6) DVT prophylaxis Current Visit: Yes Status: Acute Assessment and plan: Heparin subcutaneous - Time Spent With Patient 25 - 35 minutes - Subjective Interval history: Examined this morning. Patient is awake and alert. Not in any distress. Denies chest pain or shortness of breath. Tolerating oral diet well. Hemodynamically stable. No fever. Complains of generalized weakness. Patient is refusing to have labs drawn this morning. No other acute events or complaints. Admitted for generalized weakness and hyponatremia. Nephrology is following. Patient is currently on a fluid restriction. Tolvaptan has been held because patient is refusing morning labs today. - Constitutional Vitals: Temp Pulse Resp BP Pulse Ox 98.5 F 92 16 138/79 91 04/10/17 11:49 04/10/17 11:49 04/10/17 11:49 04/10/17 11:49 04/10/17 11:49 General appearance: Present: cachectic, cooperative, A&O X 3, pleasant, no acute distress, underweight, answers questions appropriately - Head Head exam: Present: atraumatic - Eye Eye exam: Present: EOMI - ENT ENT exam: Present: mucous membranes dry - Respiratory Respiratory exam: Present: CTAB. Absent: accessory muscle use, chest wall tenderness, rales, respiratory distress, rhonchi, wheezes, tachypnea - Cardiovascular Cardiovascular exam: Present: RRR, +S1, +S2 - GI/Abdominal GI/Abdominal exam: Present: soft. Absent: distended, firm, guarding, tenderness - Extremities Exam Extremities exam: Present: radial pulses palpable and symmetrical. Absent: calf tenderness, cyanotic, pedal edema - Neurological Exam Neurological exam: Present: alert, oriented X3, no focal deficits. Absent: facial droop, speech deficit Internal Medicine: Result - Labs CBC & Chem 7: 04/08/17 07:56 04/09/17 07:12 - ABG Interpretation ABG results: PT/INR, D-dimer PT 10.5 Seconds (9.4-12.1) 04/08/17 07:56 Consult Discharge Plan - Plan Referrals: Kelly Willett MD [Primary Care Provider] - 04/15/17 3:00 pm ()
[2017-04-11] MEDS: *HR* Heparin 5,000 UNIT/ML VIAL SQ SCH ×2 (05:35→17:12)
[2017-04-11] MEDS: Levothyroxine 25 MCG TABLET PO SCH (05:35)
[2017-04-11] MEDS: Cholecalciferol (D-3) 1,000 UNIT TABLET PO SCH (09:54)
[2017-04-11] MEDS: Famotidine 20 MG TABLET PO SCH ×2 (09:54→18:46)
[2017-04-11] MEDS: Aspirin Enteric Coated 325 MG Tablet PO SCH (09:55)
[2017-04-11] MEDS: BuPROPion XL (24 HR) 150 MG TABLET PO SCH (09:58)
--- NOTE | 2017-04-11 10:47 | Event Note ---
Date of Encounter: 04/11/17 Time of Encounter: 10:46 Nephrology Pt again is not cooperating with lab draws, which limits mgt of the hyponatemia. Would tentatively recommend continuing a Fluid Restriction. Will check back tomorrow.
[2017-04-11] MEDS: Budesonide/Formoterol 160/4.5 MDI IH SCH ×2 (11:47→20:39)
--- NOTE | 2017-04-11 11:51 | Internal Med Progress Note ---
Date of Encounter: 04/11/17 Time of Encounter: 07:50 - Assessment and plan (1) Hyponatremia Current Visit: Yes Status: Acute Assessment and plan: Possible hypovolemia vs SIADH - stable - patient refuses to have labs drawn because it hurts his arm Concerning for SIADH - Patient placed on free water restriction Sodium levels remained stable - patient has refused morning labs today Nephrology following - appreciate input Repeat labs in a.m., monitor closely (2) Generalized weakness Current Visit: Yes Status: Chronic Assessment and plan: Possibly related to hyponatremia and underlying malignant melanoma Evaluated by PT/OT - Recommended placement to skilled rehabilitation greenhouse worker consult (3) COPD (chronic obstructive pulmonary disease) Current Visit: Yes Status: Chronic Assessment and plan: Stable, not in exacerbation Continue Proventil PRN, Symbicort Qualifiers: COPD type: unspecified COPD Qualified Code(s): J44.9 - Chronic obstructive pulmonary disease, unspecified (4) HLD (hyperlipidemia) Current Visit: Yes Status: Chronic Assessment and plan: Continue Zocor Qualifiers: Hyperlipidemia type: mixed hyperlipidemia Qualified Code(s): E78.2 - Mixed hyperlipidemia (5) Essential hypertension Current Visit: Yes Status: Acute Assessment and plan: Essential hypertension, controlled, monitor Continue Zestril that has been started on this admission, IV Hydralazine PRN (6) DVT prophylaxis Current Visit: Yes Status: Acute Assessment and plan: Heparin subcutaneous - Time Spent With Patient 25 - 35 minutes - Subjective Interval history: Examined this morning. Patient is awake and alert. Refusing to have ant labs drwan. Refusing to have his IV line restarted. Not being cooperative. Not in any distress. Denies chest pain or shortness of breath. Tolerating oral diet well. Hemodynamically stable. No fever. Complains of generalized weakness. No other acute events or complaints. Admitted for generalized weakness and hyponatremia. Nephrology is following. Patient is currently on a fluid restriction. Tolvaptan has been held because patient is refusing morning labs today. - Constitutional Vitals: Temp Pulse Resp BP Pulse Ox 98.0 F 68 16 122/83 95 04/11/17 08:23 04/11/17 08:23 04/11/17 08:23 04/11/17 08:23 04/11/17 08:23 General appearance: Present: cachectic, A&O X 3, pleasant, no acute distress, underweight, answers questions appropriately. Absent: cooperative - Head Head exam: Present: atraumatic - Eye Eye exam: Present: EOMI - ENT ENT exam: Present: mucous membranes dry - Respiratory Respiratory exam: Present: CTAB. Absent: accessory muscle use, chest wall tenderness, rales, respiratory distress, rhonchi, wheezes, tachypnea - Cardiovascular Cardiovascular exam: Present: RRR, +S1, +S2 - GI/Abdominal GI/Abdominal exam: Present: soft. Absent: distended, firm, guarding, tenderness - Extremities Exam Extremities exam: Present: radial pulses palpable and symmetrical. Absent: calf tenderness, cyanotic, pedal edema - Neurological Exam Neurological exam: Present: alert, oriented X3, no focal deficits. Absent: facial droop, speech deficit Internal Medicine: Result - Labs CBC & Chem 7: 04/08/17 07:56 04/09/17 07:12 - ABG Interpretation ABG results: PT/INR, D-dimer PT 10.5 Seconds (9.4-12.1) 04/08/17 07:56 Consult Discharge Plan - Plan Referrals: Kelly Willett MD [Primary Care Provider] - 04/15/17 3:00 pm ()
[2017-04-12] MEDS ORDERED: Sennosides/Docusate Sodium TABLET PO PRN (03:44)
[2017-04-12] MEDS ORDERED: Bismuth Subsalicylate 120 ML ORAL SUSPENSION PO PRN (03:45)
[2017-04-12] MEDS: Levothyroxine 25 MCG TABLET PO SCH (06:44)
[2017-04-12] MEDS: *HR* Heparin 5,000 UNIT/ML VIAL SQ SCH ×2 (06:44→18:37)
--- NOTE | 2017-04-12 09:40 | Event Note ---
Date of Encounter: 04/12/17 Time of Encounter: 09:39 Nephrology Chart Review The pt continues to not cooperate with lab draws, thus limiting care of his hyponatremia. I'll be available and will follow from a distance. FARIBA
--- NOTE | 2017-04-12 10:41 | Internal Med Progress Note ---
Date of Encounter: 04/12/17 Time of Encounter: 08:00 - Assessment and plan (1) Hyponatremia Current Visit: Yes Status: Acute Assessment and plan: Possible hypovolemia vs SIADH - stable - patient continues to refuse any lab draws, because it hurts his arm Concerning for SIADH - Patient placed on free water restriction Sodium levels remained stable - patient has refused morning labs today Nephrology following - appreciate input Repeat labs in a.m., monitor closely Initial plan was to discharge to [facility]CF, but patient wants to be discharged home with home health (2) Generalized weakness Current Visit: Yes Status: Chronic Assessment and plan: Possibly related to hyponatremia and underlying malignant melanoma Evaluated by PT/OT - Recommended placement to skilled rehabilitation tar pot worker consult, patient wants to be discharged home with home health (3) COPD (chronic obstructive pulmonary disease) Current Visit: Yes Status: Chronic Assessment and plan: Stable, not in exacerbation Continue Proventil PRN, Symbicort Qualifiers: COPD type: unspecified COPD Qualified Code(s): J44.9 - Chronic obstructive pulmonary disease, unspecified (4) HLD (hyperlipidemia) Current Visit: Yes Status: Chronic Assessment and plan: Continue Zocor Qualifiers: Hyperlipidemia type: mixed hyperlipidemia Qualified Code(s): E78.2 - Mixed hyperlipidemia (5) Essential hypertension Current Visit: Yes Status: Acute Assessment and plan: Essential hypertension, controlled, monitor Continue Zestril that was started during this admission, IV Hydralazine PRN (6) DVT prophylaxis Current Visit: Yes Status: Acute Assessment and plan: Heparin subcutaneous - Time Spent With Patient 25 - 35 minutes - Subjective Interval history: Examined this morning. Patient is awake and alert. Refusing to have any labs drawn. Refusing to have his IV line restarted. Not being cooperative. Not in any distress. Denies chest pain or shortness of breath. Tolerating oral diet well. Hemodynamically stable. No fever. No other acute events or complaints. Complains of mild generalized weakness. Admitted for generalized weakness and hyponatremia. Nephrology is following. Patient is currently on a fluid restriction. Tolvaptan has been held because patient is refusing morning labs for the past 3 days. Initial plan was to discharge to ECF. Patient wants to be discharged home with home health. - Constitutional Vitals: Temp Pulse Resp BP Pulse Ox 98.3 F 85 17 176/105 92 04/12/17 07:08 04/12/17 07:08 04/12/17 07:08 04/12/17 07:08 04/12/17 07:08 General appearance: Present: cachectic, A&O X 3, pleasant, no acute distress, underweight, answers questions appropriately. Absent: cooperative - Head Head exam: Present: atraumatic - Eye Eye exam: Present: EOMI - ENT ENT exam: Present: mucous membranes dry - Neck Neck exam general surgery: Present: full ROM - Respiratory Respiratory exam: Present: CTAB. Absent: accessory muscle use, chest wall tenderness, rales, respiratory distress, rhonchi, wheezes, tachypnea - Cardiovascular Cardiovascular exam: Present: RRR, +S1, +S2 - GI/Abdominal GI/Abdominal exam: Present: soft, no peritoneal signs. Absent: distended, firm , guarding, tenderness - Extremities Exam Extremities exam: Present: radial pulses palpable and symmetrical. Absent: calf tenderness, cyanotic, pedal edema - Neurological Exam Neurological exam: Present: alert, CN II-XII intact, oriented X3, no focal deficits. Absent: facial droop, speech deficit Internal Medicine: Result - Labs CBC & Chem 7: 04/08/17 07:56 04/09/17 07:12 - ABG Interpretation ABG results: PT/INR, D-dimer PT 10.5 Seconds (9.4-12.1) 04/08/17 07:56 Consult Discharge Plan - Plan Referrals: Kelly Willett MD [Primary Care Provider] - 04/15/17 3:00 pm ()
[2017-04-12] MEDS: Budesonide/Formoterol 160/4.5 MDI IH SCH ×2 (10:48→20:29)
[2017-04-12] MEDS: BuPROPion XL (24 HR) 150 MG TABLET PO SCH (12:22)
[2017-04-12] MEDS: Cholecalciferol (D-3) 1,000 UNIT TABLET PO SCH (12:22)
[2017-04-12] MEDS: Aspirin Enteric Coated 325 MG Tablet PO SCH (12:22)
[2017-04-12] MEDS: Famotidine 20 MG TABLET PO SCH ×2 (12:22→21:54)
[2017-04-13] MEDS: Levothyroxine 25 MCG TABLET PO SCH (06:05)
[2017-04-13] MEDS: *HR* Heparin 5,000 UNIT/ML VIAL SQ SCH (06:05)
[2017-04-13 08:15] VITALS: BP 152/90
[2017-04-13] MEDS: Cholecalciferol (D-3) 1,000 UNIT TABLET PO SCH (09:36)
[2017-04-13] MEDS: Famotidine 20 MG TABLET PO SCH (09:36)
[2017-04-13] MEDS: Aspirin Enteric Coated 325 MG Tablet PO SCH (09:37)
[2017-04-13] MEDS: BuPROPion XL (24 HR) 150 MG TABLET PO SCH (09:37)
[2017-04-13] MEDS: Budesonide/Formoterol 160/4.5 MDI IH SCH (10:47)
--- NOTE | 2017-04-13 16:33 | Discharge Summary ---
Date of Encounter: 04/13/17 Time of Encounter: 11:00 - Discharge Diagnosis (1) Generalized weakness Priority: Primary Status: Chronic - Discharge Medications Home Medications: Budesonide/Formoterol 160/4.5 [Symbicort 160/4.5] 2 puff IH BIDR 05/06/15 [ History] Bupropion HCl [Wellbutrin Xl] 300 mg PO QAM 05/06/15 [History] Citalopram Hydrobromide [Celexa] 40 mg PO QAM 05/06/15 [History] Montelukast [Singulair] 10 mg PO QPM 05/06/15 [History] Ranitidine HCl [Zantac] 150 mg PO BID 05/06/15 [History] Simvastatin [Zocor] 40 mg PO QPM 05/06/15 [History] Aspirin Enteric Coated [Aspirin EC] 325 mg PO DAILY #21 tablet. 06/30/15 [Rx] Albuterol Neb [Proventil Neb] 2.5 mg IH Q4HR PRN 07/01/15 [History] Albuterol Sulfate [Albuterol Inhaler] 2 puff IH Q6HR PRN 07/01/15 [History] Cholecalciferol (Vitamin D3) [Vitamin D3] 2,000 unit PO DAILY 07/01/15 [History] Oxygen 2 l NS AD PRN 07/01/15 [History] Tamsulosin [Flomax] 0.4 mg PO DAILY 09/09/15 [History] Docusate Sodium [Stool Softener] 250 mg PO BID PRN 02/13/17 [History] Dexamethasone [Decadron] 4 mg PO DAILY 04/07/17 [History] Lactose-Reduced Food [Ensure Liquid] 1 bottle PO QID 04/07/17 [History] Levothyroxine [Synthroid] 25 mcg PO 0630 04/07/17 [History] Nitroglycerin [Nitrostat] 0.4 mg SL Q5M PRN 04/07/17 [History] Allergies/Adverse Reactions: 3 Allergy/AdvReac Type Severity Reaction Status Date / Time No Known Allergies Allergy Verified 09/09/15 06:55 Date of admission: 04/07/17 16:45 Primary care physician: Kelly Willett, Consults: 04/12/17 07:27 Consult to Hiv Prevention Specialist [CONS] Routine Reason for SW Consult: d/c planning 04/07/17 17:22 Consult to Nephrology [CONS] Routine Consulting Provider: Kidney Jessica/ORIMI/JUN/WANDA Reason for Consult: hyponat Call Completed: Yes 04/08/17 08:26 Consult to Occupational Therapy [CONS] Routine Comment: Evaluate, develop and implement POC Reason for Consult: weekness Consult to Physical Medicine/Rehab [CONS] Routine Consulting Provider: Era Causey Reason for Consult: Time Notified: 08:27 Call Completed: No Consult to Physical Therapy [CONS] Routine Comment: Evaluate, develop and implement POC Reason for Consult: weekness - Patient Status Disposition: Transfer SNF Condition: Fair - Discharge Instructions Follow Up With: Kelly Willett MD [Primary Care Provider] - 04/15/17 3:00 pm () Hospital course: Patient is a 77 year old male with past medical history significant for melanoma , currently undergoing chemotherapy, who presented to the ER on 04/07/17 with generalized weakness. The patient denies any vomiting or diarrhea, fevers. No localized numbness or weakness of the extremities but does have generalized weakness. No slurred speech, facial droop or confusion. No rhinorrhea, cough, sneezing or blurred vision. No blood in the urine or stool. No pain of the extremities and no skin rash or bruising of the skin except for the melanoma on the left side of his scalp. He and his are interested in SNF placement. During patients hospital stay social work was consulted and patient approved go to [facility]. - Time Spent with Patient Total time spent providing and/or coordinating discharge services: Less than 30 minutes - Constitutional Vitals: Temp Pulse Resp BP Pulse Ox 99.1 F 75 16 152/90 93 04/13/17 08:12 04/13/17 08:12 04/13/17 10:47 04/13/17 08:12 04/13/17 10:47 General appearance: Present: cachectic, A&O X 3, pleasant, no acute distress, underweight, answers questions appropriately. Absent: cooperative - Cardiovascular Cardiovascular exam: Present: RRR, +S1, +S2. Absent: diastolic murmur, gallop, rubs, systolic murmur
--- NOTE | 2017-04-13 16:35 | Physician Discharge Referral ---
- Diagnosis (1) Generalized weakness Priority: Primary Status: Chronic - Transfer Medications Home Medications: Budesonide/Formoterol 160/4.5 [Symbicort 160/4.5] 2 puff IH BIDR 05/06/15 [ History] Bupropion HCl [Wellbutrin Xl] 300 mg PO QAM 05/06/15 [History] Citalopram Hydrobromide [Celexa] 40 mg PO QAM 05/06/15 [History] Montelukast [Singulair] 10 mg PO QPM 05/06/15 [History] Ranitidine HCl [Zantac] 150 mg PO BID 05/06/15 [History] Simvastatin [Zocor] 40 mg PO QPM 05/06/15 [History] Aspirin Enteric Coated [Aspirin EC] 325 mg PO DAILY #21 tablet. 06/30/15 [Rx] Albuterol Neb [Proventil Neb] 2.5 mg IH Q4HR PRN 07/01/15 [History] Albuterol Sulfate [Albuterol Inhaler] 2 puff IH Q6HR PRN 07/01/15 [History] Cholecalciferol (Vitamin D3) [Vitamin D3] 2,000 unit PO DAILY 07/01/15 [History] Oxygen 2 l NS AD PRN 07/01/15 [History] Tamsulosin [Flomax] 0.4 mg PO DAILY 09/09/15 [History] Docusate Sodium [Stool Softener] 250 mg PO BID PRN 02/13/17 [History] Dexamethasone [Decadron] 4 mg PO DAILY 04/07/17 [History] Lactose-Reduced Food [Ensure Liquid] 1 bottle PO QID 04/07/17 [History] Levothyroxine [Synthroid] 25 mcg PO 0630 04/07/17 [History] Nitroglycerin [Nitrostat] 0.4 mg SL Q5M PRN 04/07/17 [History] Allergies/Adverse Reactions: 3 Allergy/AdvReac Type Severity Reaction Status Date / Time No Known Allergies Allergy Verified 09/09/15 06:55 - Respiratory Orders Smoking Cessation: Smoking cessation has been advised. For more information, call the [place] Tobacco Quit Line at 4-177-AMZH-NOW. CERTIFICATION: I certify that the transfer of the above named patient to an Extended Care Facility is necessary for the continuing treatment of the diagnosis listed. The above information is true and accurate reflection of patient's current condition. Confidential - Redisclosure prohibited without a patient's written consent.
== END 2017-04-13 17:50 | DRG 644 ==
LOC: EMEROO 13:09 → 2ANU 16:45 → SUATTDRO 16:45 → 2ANU 17:25
PROVIDERS: ADMIT Internal Medicine Nephrology; ATTEND Hospitalist

== ENCOUNTER 2017-06-22 15:49 | Inpatient (IN) ==
[2017-06-22] MEDS ORDERED: Ipratropium/Albuterol Neb 3 ML IH ONE (16:09)
--- NOTE | 2017-06-22 16:12 | Emergency Department Note ---
Disposition Clinical Impression: Acute exacerbation of chronic obstructive airways disease, Generalized weakness Pneumonia Qualifiers: Pneumonia type: due to unspecified organism Laterality: right Lung location: lower lobe of lung Qualified Code(s): J18.1 - Lobar pneumonia, unspecified organism Melanoma Qualifiers: Melanoma location: scalp Qualified Code(s): C43.4 - Malignant melanoma of scalp and neck Disposition: Admitted As Inpatient Condition: Good Referrals: Kelly Willett MD [Primary Care Provider] - Forms: ED Satisfaction Letter Time of Disposition: 20:51 SOB HPI - General Chief Complaint: ED Shortness of Breath/Dyspnea Stated Complaint: KOBY,cough Time Seen by Provider: 06/22/17 16:05 Source: patient, EMS Mode of arrival: EMS Limitations: no limitations Nursing Notes Reviewed: Yes Vital Signs Reviewed: Yes - History of Present Illness Patient complaining of a two-day history of increased shortness of breath. Does have a history of COPD and is on oxygen at home. Does also have a history of melanoma that he has stopped taking medication for due to making him too weak. Denies any productivity to his cough. Denies any pain. He does report a low-grade fever at home. He denies any chest pain. - Related Data Home Medications Medication Instructions Recorded Confirmed Budesonide/Formoterol 160/4.5 2 puff IH BIDR 05/06/15 06/22/17 [Symbicort 160/4.5] Bupropion HCl [Wellbutrin Xl] 300 mg PO QAM 05/06/15 06/22/17 Citalopram Hydrobromide [Celexa] 40 mg PO QAM 05/06/15 06/22/17 Montelukast [Singulair] 10 mg PO HS 05/06/15 06/22/17 Ranitidine HCl [Zantac] 150 mg PO BID 05/06/15 06/22/17 Simvastatin [Zocor] 40 mg PO HS 05/06/15 06/22/17 Albuterol Neb [Proventil Neb] 2.5 mg IH Q4HR PRN 07/01/15 06/22/17 Albuterol Sulfate [Albuterol 2 puff IH Q6HR PRN 07/01/15 06/22/17 Inhaler] Cholecalciferol (Vitamin D3) 2,000 unit PO DAILY 07/01/15 06/22/17 [Vitamin D3] Oxygen 2 l NS AD PRN 07/01/15 06/22/17 Tamsulosin [Flomax] 0.4 mg PO HS 09/09/15 06/22/17 Docusate Sodium [Stool Softener] 250 mg PO BID PRN 02/13/17 06/22/17 Dexamethasone [Decadron] 4 mg PO DAILY 04/07/17 06/22/17 Levothyroxine [Synthroid] 25 mcg PO 0630 04/07/17 06/22/17 Nitroglycerin [Nitrostat] 0.4 mg SL Q5M PRN 04/07/17 06/22/17 Acetaminophen [Tylenol] 650 mg PO Q4H PRN 06/22/17 06/22/17 Aspirin Enteric Coated [Aspirin EC] 325 mg PO 06/22/17 06/22/17 Ibuprofen [Motrin] 200 mg PO Q8H PRN 06/22/17 06/22/17 Mirtazapine [Remeron] 15 mg PO HS 06/22/17 06/22/17 Allergies Allergy/AdvReac Type Severity Reaction Status Date / Time No Known Allergies Allergy Verified 09/09/15 06:55 All systems ED: reviewed and negative except as stated. Constitutional: Reports: fever ENT ED: Denies: congestion Cardiovascular: Denies: chest pain, palpitations, syncope Respiratory: Reports: cough, dyspnea. Denies: wheezes Gastrointestinal: Denies: abdominal pain, nausea, vomiting, diarrhea, hematemesis Genitourinary: Denies: urgency, dysuria, frequency Musculoskeletal: Denies: back pain, neck pain Integumentary: Denies: rash Neurological: Reports: weakness Past Medical History - Past Medical History Attestation: Yes The following information was validated with the patient. Source: patient Medical history: Reports: cancer, COPD, coronary artery disease, CVA, GERD, hyperlipidemia, hypertension, myocardial infarction, other Psychiatric history: Reports: anxiety, depression - Social History Smoking Status: Current some day smoker Smokeless Tobacco Status: No Alcohol use: Reports: none Drug use: Reports: none Physical Exam - General Limitations: no limitations General appearance: alert, in no apparent distress - Head Head exam: atraumatic, normocephalic, normal inspection - Eye Eye exam: Present: normal appearance, PERRL, EOMI - ENT ENT exam: normal exam, normal oropharynx, mucous membranes moist - Neck Neck exam: Present: normal inspection, full ROM, trachea midline. Absent: tenderness, meningismus - Chest Chest inspection: Present: normal inspection, symmetric chest wall rise. Absent : tenderness, rash - Respiratory Respiratory exam: Present: other (Patient has rales throughout.). Absent: respiratory distress (Is not in any respiratory distress.), wheezes, accessory muscle use, prolonged expiratory phase - Cardiovascular Cardiovascular exam: Present: regular rate, normal rhythm, normal heart sounds - Abdominal Exam Abdominal exam: Present: soft, Non-Tender. Absent: tenderness, distention, guarding - Extremities Exam Extremities exam: Present: pedal edema (Pitting to bilateral lower extremities to the knees.) - Back Exam Back exam: Present: normal inspection - Neurological Exam Neurological exam: Present: alert, oriented X3 - Psychiatric Psychiatric exam: Present: normal affect, normal mood - Skin Skin exam: Present: warm, dry, intact Course Course Narrative: Male patient presenting complaints department complaining of a 2 day history of shortness of breath. He denies any chest pain. States he does have a history of COPD. Has been taking all his medications as prescribed. He does live in a shelter. Reports a "low-grade fever." He is not febrile here. He denies any trouble urinating but states that his lower extremities have been increasing the swollen over the past week. Used to take a "fluid pill." States that he does not think that any longer because it made his blood pressure decreased. He does not appear to be in any distress sitting in bed. Lung sounds are wet throughout. Patient is on oxygen at this time. He wears 3 L all the time. We will get a chest x-ray and basic lab workup on the patient. - Reevaluation(s) Reevaluation #1: Patient has a right lower lobe pneumonia. We will treat this with Levaquin. He also appears fluid overloaded clinically. He has wet lung sounds as well as what appears to be pulmonary edema on his chest x-ray. We have placed Nitropaste on his chest. We have withheld the Lasix due to patient reporting significant hypotension with this. We will admit patient to the hospital he is agreeable to this. - Consultations Consultation #1: Dr. ESTRELLA accepted patient stable condition. Time: 19:58 Vital Signs Temperature 97.9 F 06/22/17 15:57 Pulse Rate 69 06/22/17 15:57 Respiratory Rate 18 06/22/17 15:57 Blood Pressure 110/72 06/22/17 15:57 O2 Sat by Pulse Oximetry 96 06/22/17 15:57 Temperature 97.9 F 06/22/17 15:57 Pulse Rate 69 06/22/17 18:54 Respiratory Rate 18 06/22/17 18:54 Blood Pressure 118/78 06/22/17 18:54 O2 Sat by Pulse Oximetry 98 06/22/17 18:54 Oxygen Delivery Oxygen Delivery Room Air Shortness of Breath/Dyspnea - Medical Records Medical records reviewed: Yes I reviewed the patient's medical records. - Lab Data Lab results reviewed: Yes I reviewed the patient's lab results. Result diagrams: 06/22/17 16:39 06/22/17 16:39 Lab Results 06/22/17 06/22/17 06/22/17 Range/Units 16:39 16:39 16:39 WBC (4.3-11.1) K/mcL RBC (4.19-5.50) M/mcL Hgb (12.9-16.9) g/dL Hct (37.5-50.1) % MCV (83.0-100.0) fL MCH (28.0-33.3) pg MCHC (31.6-35.5) g/dL RDW (11.5-14.5) % Plt Count (140-400) K/mcL MPV (9.4-12.4) fL Seg Neutrophils % % Band Neutrophils % (0-4) % Lymphocytes % % Monocytes % % Eosinophils % % Neutrophils # (1.6-8.9) K/mcL Lymphocytes # (0.6-4.6) K/mcL Monocytes # (0.0-1.3) K/mcL Eosinophils # (0.0-0.6) K/mcL Reactive Lymphocytes (Not Present) Platelet Estimate (Normal) Sodium 135 L (136-145) mEq/L Potassium 4.2 (3.5-5.1) mEq/L Chloride 99 (98-107) mEq/L Carbon Dioxide 26 (23-29) mEq/L BUN 21 (8-23) mg/dL Creatinine 0.81 (0.70-1.30) mg/dL Est GFR ( Amer) > 60 (> 60) Est GFR (Non-Af Amer) > 60 (> 60) BUN/Creatinine Ratio 26 (6-26) Glucose 63 L (70-105) mg/dL Calculated Osmolality 281 (280-300) Lactic Acid 1.2 (0.5-2.2) mmol/L Calcium 8.9 (8.6-10.3) mg/dL Troponin I 0.03 (< 0.04) ng/mL B-Natriuretic Peptide 79 (Less than 100) pg/mL Urine Color (Yellow) Urine Clarity (Clear) Urine pH (5.0-8.0) pH Units Ur Specific [place] (1.010-1.025) Urine Protein (Neg-Trace) mg/dL Urine Glucose (UA) (Normal) mg/dL Urine Ketones (Negative) mg/dL Urine Blood (Negative) Urine Nitrite (Negative) Urine Bilirubin (Negative) Urine Urobilinogen (Normal) mg/dL Ur Leukocyte Esterase (Negative) Urine Microscopic RBC (0-3) per hpf Urine Microscopic WBC (0-3) per hpf Ur Squamous Epith Cells (None-Few) per lpf Urine Bacteria (None-Few) per hpf Hyaline Casts (None-Few) per lpf Ur Culture Indicated? (NO) 06/22/17 06/22/17 06/22/17 Range/Units 16:39 17:18 18:38 WBC 13.0 H (4.3-11.1) K/mcL RBC 4.19 (4.19-5.50) M/mcL Hgb 13.5 (12.9-16.9) g/dL Hct 41.1 (37.5-50.1) % MCV 98.1 (83.0-100.0) fL MCH 32.2 (28.0-33.3) pg MCHC 32.8 (31.6-35.5) g/dL RDW 17.4 H (11.5-14.5) % Plt Count 271 (140-400) K/mcL MPV 8.9 L (9.4-12.4) fL Seg Neutrophils % 68.0 % Band Neutrophils % 4.0 (0-4) % Lymphocytes % 20.0 % Monocytes % 6.0 % Eosinophils % 2.0 % Neutrophils # 9.4 H (1.6-8.9) K/mcL Lymphocytes # 2.6 (0.6-4.6) K/mcL Monocytes # 0.8 (0.0-1.3) K/mcL Eosinophils # 0.3 (0.0-0.6) K/mcL Reactive Lymphocytes Present A (Not Present) Platelet Estimate Normal (Normal) Sodium (136-145) mEq/L Potassium (3.5-5.1) mEq/L Chloride (98-107) mEq/L Carbon Dioxide (23-29) mEq/L BUN (8-23) mg/dL Creatinine (0.70-1.30) mg/dL Est GFR ( Amer) (> 60) Est GFR (Non-Af Amer) (> 60) BUN/Creatinine Ratio (6-26) Glucose (70-105) mg/dL Calculated Osmolality (280-300) Lactic Acid 1.2 (0.5-2.2) mmol/L Calcium (8.6-10.3) mg/dL Troponin I (< 0.04) ng/mL B-Natriuretic Peptide (Less than 100) pg/mL Urine Color Yellow (Yellow) Urine Clarity Clear (Clear) Urine pH 6.5 (5.0-8.0) pH Units Ur Specific [place] 1.029 H (1.010-1.025) Urine Protein Trace (Neg-Trace) mg/dL Urine Glucose (UA) Normal (Normal) mg/dL Urine Ketones Negative (Negative) mg/dL Urine Blood Negative (Negative) Urine Nitrite Negative (Negative) Urine Bilirubin Small H (Negative) Urine Urobilinogen Normal (Normal) mg/dL Ur Leukocyte Esterase Negative (Negative) Urine Microscopic RBC 3-5 H (0-3) per hpf Urine Microscopic WBC 0-3 (0-3) per hpf Ur Squamous Epith Cells Many H (None-Few) per lpf Urine Bacteria None Seen (None-Few) per hpf Hyaline Casts None Seen (None-Few) per lpf Ur Culture Indicated? NO (NO) - Radiology Data Radiology results reviewed: Yes I reviewed the patient's radiology results. Chest X-Ray 06/22/17 16:10 IMPRESSION: Findings suggest mild pulmonary edema and possible low grade congestive heart failure superimposed upon COPD. Possibility of superimposed pneumonia right lower lobe versus asymmetric pulmonary edema should also be considered. D/ / Slick Brown MD / Slick Brown MD Interpreting Provider: Slick Brown MD - EKG Data EKG attestation: Yes I reviewed and interpreted this EKG. EKG results narrative: Sinus rhythm at a rate of 68. CO interval is 148. Respirations 101. QT is 427. QTC is 445. No signs of ST elevation or depression. No significant change from previous EKG dated 04/07/2017. Attestation Statement - Attestation Attestation: I examined this patient and my medical decision-making was reviewed with the Resident Physician, Dr. Boateng. I agree with the documented findings, disposition and treatment plan as described except to the extent set forth below. Patient is a 77-year-old elderly white male with a history of melanoma who presents to the emergency department today brought by EMS for gradually worsening shortness of breath. Patient has a history of COPD and is on 3 L nasal cannula oxygen at all times and is currently residing in an extended care facility for rehabilitation following chemotherapy. Patient's family member at bedside he states that he was undergoing chemotherapy in March and it was halted due to worsening generalized weakness and weight loss. Patient has been rehabilitating at the extended care facility and nursing was concerned about his increased work of breathing and productive cough he has developed over the past week. Patient is diaphoretic at bedside and reports subjective fever and chills. Patient with very coarse sounding cough at bedside. Patient denies any posttussive emesis. Patient denies any associated chest pain, palpitations , no abdominal pain or flank pain. Patient does have some 1+ pitting edema in the lower extremities which she states has worsened over the past week as well. I agree with patient's physical exam findings as documented. Patient received breathing treatments and steroids and aspirin on arrival to the ED. Labs were obtained and chest x-ray was also obtained. Chest x-ray shows very mixed interpretation with mild pulmonary edema, exacerbation of COPD, and questionable right lower lobe infiltrate. Considering patient's clinical symptoms we will cover him with antibiotics. Patient does not meet Sirs or sepsis criteria and has a normal lactate. BNP and troponin were also within normal limits. Patient will be admitted for acute exacerbation of COPD and pneumonia.
[2017-06-22 16:56] LABS: Hematocrit 41.1 % (37.5-50.1); Hemoglobin 13.5 g/dL (12.9-16.9); Mean Corpuscular HGB Conc 32.8 g/dL (31.6-35.5); Mean Corpuscular Hemoglobin 32.2 pg (28.0-33.3); Mean Corpuscular Volume 98.1 fL (83.0-100.0); Mean Platelet Volume 8.9 fL (9.4-12.4); Platelet Count 271 K/mcL (140-400); Red Blood Count 4.19 M/mcL (4.19-5.50); Red Cell Distribution Width 17.4 % (11.5-14.5)
[2017-06-22 17:19] LABS: Troponin I 0.03 ng/mL (< 0.04)
[2017-06-22] MEDS ORDERED: Aspirin 81 MG TAB.CHEW PO ONE (17:23)
[2017-06-22] MEDS ORDERED: Furosemide 20 MG/2 ML VIAL IVP ONE (17:33)
[2017-06-22] MEDS ORDERED: Levofloxacin 750 MG/150 ML 750 MG/150 ML BAG IVPB ONE (17:36)
[2017-06-22 17:46] LABS: Eosinophils # 0.3 K/mcL (0.0-0.6); Lymphocytes # 2.6 K/mcL (0.6-4.6); Monocytes # 0.8 K/mcL (0.0-1.3); Neutrophils # 9.4 K/mcL (1.6-8.9); Platelet Estimate Normal (Normal); Reactive Lymphocytes Present (Not Present)
[2017-06-22 17:56] LABS: BUN/Creatinine Ratio 26 (6-26); Blood Urea Nitrogen 21 mg/dL (8-23); Carbon Dioxide 26 mEq/L (23-29); Chloride 99 mEq/L (98-107); Potassium 4.2 mEq/L (3.5-5.1); Sodium 135 mEq/L (136-145)
[2017-06-22 17:57] LABS: Calcium 8.9 mg/dL (8.6-10.3); Glucose 63 mg/dL (70-105); Osmolality,Calculated 281 (280-300); eGFR For African Americans > 60 (> 60); eGFR For Non-African Americans > 60 (> 60)
[2017-06-22 18:45] LABS: Bilirubin,Urine Small (Negative); Blood,Urine Negative (Negative); Clarity,Urine Clear (Clear); Color,Urine Yellow (Yellow); Glucose,Urine (UA) Normal (Normal); Ketones,Urine Negative (Negative); Leukocyte Esterase,Urine Negative (Negative); Nitrite,Urine Negative (Negative); PH,Urine 6.5 pH Units (5.0-8.0); Protein,Urine Trace mg/dL (Neg-Trace); Specific Gravity,Urine 1.029 (1.010-1.025); Urobilinogen,Urine Normal (Normal)
[2017-06-22 18:47] LABS: Bacteria,Urine None Seen per hpf (None-Few); Hyaline Casts,Urine None Seen per lpf (None-Few); Squamous Epithelial Cell,Urine Many per lpf (None-Few); WBC,Urine 0-3 per hpf (0-3)
--- NOTE | 2017-06-22 23:42 | Internal Med History&Physical ---
<Melissa rPetty - Last Filed: 06/23/17 03:23> Date of Encounter: 06/23/17 Time of Encounter: 23:42 Assessment and Plan (1) Pneumonia Current visit: Yes Status: Acute 77 y M with COPD with SOB x several days, with hospital note indication pt was admitted from [facility]. HCAP designation no longer in present HAP guidelines. CURB 65 Score - 2 (+[address], +1 Age). Levofloxacin 750 mg daily. Continuous pulse oximetry. Qualifiers: Pneumonia type: due to unspecified organism Laterality: right Lung location: lower lobe of lung Qualified Code(s): J18.1 - Lobar pneumonia, unspecified organism (2) Acute exacerbation of chronic obstructive airways disease Current visit: Yes Status: Acute 77 y M with COPD, SOB with associated cough, non purulent cough. Supplemental oxygen remains, critical component of acute therapy, with target SpO2 of 88 to 92 percent. Continuous pulse ox. Duoneb q4h. Prednisone PO (3) Melanoma Current visit: Yes Status: Chronic Qualifiers: Melanoma location: scalp Qualified Code(s): C43.4 - Malignant melanoma of scalp and neck (4) Generalized weakness Current visit: Yes Status: Chronic Pt admitted in 2016 with PMHX of hypothyroidism and for generalized weakness concurrent with chemotherapy. Continue home dose. (5) DVT prophylaxis Current visit: No Status: Acute Henry Score: Cancer: Treated with chemotherapy within last 6 months (+3), Age > 70 (+1) , Acute infectious disease (+1). VTE Prophylaxis indicated. Enoxaparin 40 mg subcutaneously once daily Internal Medicine - H&P: HPI Chief complaint: SOB History of present illness: Mr. Florence is a 77 year old male with a past medical history of COPD, CAD, CVA, GERD, hyperlipidemia, HTN who presents for a two-day history of increased shortness of breath. Pt has home oxygen requirement of 3L. Denies any productivity to his cough. Denies any pain. He denies any chest pain. No abdominal pain. Per admission, note endorsed subjective fever. Past Med Surg Social Fam HX - Past Medical History Medical history: cancer, COPD, coronary artery disease, CVA, GERD, hyperlipidemia, hypertension, myocardial infarction, other Psychiatric history: anxiety, depression - Social History Smoking Status: Current some day smoker Smokeless Tobacco Status: No Alcohol use: none Drug use: none - Family History Mother Living Status: Hx Family Cardiac Disorders: No Hx Family Respiratory Disorders: No Hx Family Cancer: No Hx Family GI Disorders: No Hx Family Endocrine Disorder: No Hx Family Neuromuscular Disorders: No Hx Family Neurologic Disorders: No Hx Family HEENT Disorders: No Hx Family Autoimmune Disorders: No Internal Medicine - H&P: Meds Budesonide/Formoterol 160/4.5 [Symbicort 160/4.5] 2 puff IH BIDR 05/06/15 [ History] Bupropion HCl [Wellbutrin Xl] 300 mg PO QAM 05/06/15 [History] Citalopram Hydrobromide [Celexa] 40 mg PO QAM 05/06/15 [History] Montelukast [Singulair] 10 mg PO HS 05/06/15 [History] Ranitidine HCl [Zantac] 150 mg PO BID 05/06/15 [History] Simvastatin [Zocor] 40 mg PO HS 05/06/15 [History] Albuterol Neb [Proventil Neb] 2.5 mg IH Q4HR PRN 07/01/15 [History] Albuterol Sulfate [Albuterol Inhaler] 2 puff IH Q6HR PRN 07/01/15 [History] Cholecalciferol (Vitamin D3) [Vitamin D3] 2,000 unit PO DAILY 07/01/15 [History] Oxygen 2 l NS AD PRN 07/01/15 [History] Tamsulosin [Flomax] 0.4 mg PO HS 09/09/15 [History] Docusate Sodium [Stool Softener] 250 mg PO BID PRN 02/13/17 [History] Dexamethasone [Decadron] 4 mg PO DAILY 04/07/17 [History] Levothyroxine [Synthroid] 25 mcg PO 0630 04/07/17 [History] Nitroglycerin [Nitrostat] 0.4 mg SL Q5M PRN 04/07/17 [History] Acetaminophen [Tylenol] 650 mg PO Q4H PRN 06/22/17 [History] Aspirin Enteric Coated [Aspirin EC] 325 mg PO HS 06/22/17 [History] Ibuprofen [Motrin] 200 mg PO Q8H PRN 06/22/17 [History] Mirtazapine [Remeron] 15 mg PO HS 06/22/17 [History] 3 Allergy/AdvReac Type Severity Reaction Status Date / Time No Known Allergies Allergy Verified 09/09/15 06:55 All Systems PM: A 10-system review of systems was performed and is negative for pertinent findings except as documented above in the HPI. Review of systems: As per HPI. - Cardiovascular Cardiovascular ROS IM: as per HPI - Respiratory Respiratory: as per HPI - Gastrointestinal Gastrointestinal: as per HPI - Constitutional Vitals: Temp Pulse Resp BP Pulse Ox 97.5 F L 71 18 119/73 96 06/22/17 22:08 06/22/17 22:08 06/22/17 22:08 06/22/17 22:08 06/22/17 22:08 General appearance: Present: cooperative, A&O X 2 (alert to person, time. ), answers questions appropriately Exam: thin - Respiratory Respiratory exam: Present: rhonchi. Absent: chest wall tenderness, respiratory distress, tachypnea - Cardiovascular Cardiovascular exam: Present: distant heart sounds, +S1, +S2. Absent: bradycardia, tachycardia - GI/Abdominal GI/Abdominal exam: Present: normal bowel sounds. Absent: guarding, no peritoneal signs - Skin Additional comments: senile purpura on bilateral arms Internal Med - H&P Results - Labs CBC & Chem 7: 06/22/17 16:39 06/22/17 16:39 - Impressions Impressions Chest X-Ray 06/22/17 16:10 IMPRESSION: Findings suggest mild pulmonary edema and possible low grade congestive heart failure superimposed upon COPD. Possibility of superimposed pneumonia right lower lobe versus asymmetric pulmonary edema should also be considered. D/ / Slick Brown MD / Slick Brown MD Interpreting Provider: Slick Brown MD <Ector Rivas - Last Filed: 06/23/17 05:21> Date of Encounter: 06/23/17 Internal Medicine - H&P: HPI History of present illness: Mr. Florence is a 77 year old male All Systems PM: A 10-system review of systems was performed and is negative for pertinent findings except as documented above in the HPI. - Constitutional Vitals: Temp Pulse Resp BP Pulse Ox 98 F 71 19 115/76 94 06/23/17 03:30 06/23/17 03:30 06/23/17 04:03 06/23/17 03:30 06/23/17 04:03 Internal Med - H&P Results - Labs CBC & Chem 7: 06/22/17 16:39 06/22/17 16:39 - Attending Attestation I have seen and examined this pt independently. I have discussed with resident physician Dr Pretty regarding the management plan, agree with the documentation.
[2017-06-23] MEDS ORDERED: Acetaminophen 325 MG TABLET PO PRN (01:38)
[2017-06-23] MEDS ORDERED: Naloxone 0.4 MG/ML INJ IVP PRN (01:38)
[2017-06-23] MEDS ORDERED: *HR* Dextrose 50 % in Water (Syg) 50 ML SYRINGE IVP PRN (01:42)
[2017-06-23] MEDS ORDERED: Dextrose Gel 15 GM/37.5 ML TUBE PO PRN ×2 (01:42)
[2017-06-23] MEDS ORDERED: D5% in Water 1,000 ML IVC PRN (01:42)
[2017-06-23] MEDS ORDERED: Ipratropium 1 PUFF INHALER IH SCH (04:00)
[2017-06-23] MEDS ORDERED: Albuterol 2.5 MG/3 ML NEBULIZER IH SCH (04:00)
[2017-06-23] MEDS: Ipratropium/Albuterol Neb 3 ML IH SCH ×6 (04:03→23:25)
[2017-06-23] MEDS ORDERED: Ipratropium/Albuterol Neb 3 ML IH SCH (05:00)
[2017-06-23] MEDS ORDERED: Nitroglycerin 0.4 MG TAB.SUBL SL PRN (05:19)
[2017-06-23 05:25] LABS: Basophils # 0.1 K/mcL (0.0-0.2); Basophils % 0.8 %; Eosinophils # 0.1 K/mcL (0.0-0.6); Eosinophils % 0.7 %; Hematocrit 39.4 % (37.5-50.1); Hemoglobin 12.7 g/dL (12.9-16.9); Immature Granulocytes % 6.5 % (0-4); Lymphocytes # 1.9 K/mcL (0.6-4.6); Lymphocytes % 14.3 %; Mean Corpuscular HGB Conc 32.2 g/dL (31.6-35.5); Mean Corpuscular Hemoglobin 31.6 pg (28.0-33.3); Mean Platelet Volume 8.8 fL (9.4-12.4); Monocytes # 0.5 K/mcL (0.0-1.3); Monocytes % 3.7 %; Neutrophils # 9.7 K/mcL (1.6-8.9); Nucleated Red Blood Cells 0.2 /100 WBC (0); Platelet Count 268 K/mcL (140-400); Red Blood Count 4.02 M/mcL (4.19-5.50); Red Cell Distribution Width 17.4 % (11.5-14.5)
[2017-06-23] MEDS: *HR* Enoxaparin 40 MG/0.4 ML SYRINGE SQ SCH (05:26)
[2017-06-23] MEDS: Levothyroxine 25 MCG TABLET PO SCH (05:26)
[2017-06-23 05:38] LABS: Alanine Aminotransferase 17 Units/L (7-52); Albumin 3.1 g/dL (3.5-5.7); Albumin/Globulin Ratio 1.1 (1.1-2.2); Alkaline Phosphatase 77 Units/L (34-104); Aspartate Amino Transferase 14 Units/L (13-39); BUN/Creatinine Ratio 24 (6-26); Bilirubin,Total 0.5 mg/dL (0.3-1.0); Blood Urea Nitrogen 20 mg/dL (8-23); Calcium 8.7 mg/dL (8.6-10.3); Carbon Dioxide 29 mEq/L (23-29); Chloride 97 mEq/L (98-107); Globulin 2.7 g/dL (2.4-3.5); Glucose 70 mg/dL (70-105); Osmolality,Calculated 275 (280-300); Potassium 4.1 mEq/L (3.5-5.1); Sodium 132 mEq/L (136-145); Total Protein 5.8 g/dL (6.4-8.9); eGFR For African Americans > 60 (> 60); eGFR For Non-African Americans > 60 (> 60)
[2017-06-23 05:54] LABS: Toxic Granulation Present (Not Present)
[2017-06-23] MEDS ORDERED: Nitroglycerin 0.3 MG PATCH.TD24 TD SCH (07:30)
[2017-06-23] MEDS: Budesonide/Formoterol 160/4.5 MDI IH SCH ×2 (07:32→19:44)
[2017-06-23] MEDS: predniSONE 20 MG TABLET PO SCH (07:44)
[2017-06-23] MEDS: BuPROPion XL (24 HR) 150 MG TABLET PO SCH (07:44)
--- NOTE | 2017-06-23 12:17 | Electrocardiograph Report ---
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
--- NOTE | 2017-06-23 14:05 | Internal Med Progress Note ---
Date of Encounter: 06/23/17 Time of Encounter: 12:30 - Assessment and plan (1) Pneumonia Current Visit: Yes Status: Acute Assessment and plan: Reviewed CXR showed inc vascular congestion.. patchy infiltrates in both lungs Mostly aspirational pna will do speech / swallow rigo No IVF Duoneb + O2 Empirical abx Levaquin + will add Unasyn too since he is high risk for aspiration Qualifiers: Pneumonia type: due to unspecified organism Laterality: right Lung location: lower lobe of lung Qualified Code(s): J18.1 - Lobar pneumonia, unspecified organism (2) Acute on chronic respiratory failure with hypoxia Current Visit: Yes Status: Acute Assessment and plan: currently on 3 lit o2 cont Duoneb + O2 (3) Pulmonary edema Current Visit: Yes Status: Acute Assessment and plan: could be due to Pneumonia. Reviewed 2 D Echo from 05/2015 showed preserved LVEF, mild diastolic dysfunction repeat 2 D Echo today Received Lasix 20 mg IV x 1 dose Will give Lasix PRN for now Qualifiers: Chronicity: acute Qualified Code(s): J81.0 - Acute pulmonary edema (4) Acute exacerbation of chronic obstructive airways disease Current Visit: Yes Status: Acute Assessment and plan: mild exacerbation cont PO steroids for now cont Duoneb ad O2 (5) Melanoma Current Visit: Yes Status: Chronic Assessment and plan: f/u with heme onc as an out pt Qualifiers: Melanoma location: scalp Qualified Code(s): C43.4 - Malignant melanoma of scalp and neck (6) Generalized weakness Current Visit: Yes Status: Chronic Assessment and plan: PT / OT eval (7) DVT prophylaxis Current Visit: No Status: Acute Assessment and plan: on Lovenox - Subjective Interval history: Mr. Florence is a 77 year old male with a past medical history of COPD, CAD, CVA, GERD, hyperlipidemia, HTN who presents for a two-day history of increased shortness of breath. Pt has home oxygen requirement of 3L. He is little sleepy now. Denied any CP. Still has cough. - Constitutional Vitals: Temp Pulse Resp BP Pulse Ox 98.5 F 74 17 116/75 95 06/23/17 11:44 06/23/17 11:44 06/23/17 11:44 06/23/17 11:44 06/23/17 11:44 General appearance: Present: cooperative, A&O X 2 (alert to person, time. ), answers questions appropriately - Head Head exam: Present: atraumatic, normal inspection - Neck Neck exam general surgery: Present: supple - Respiratory Respiratory exam: Present: decreased breath sounds, rhonchi (mild), wheezes ( moderate). Absent: rales, respiratory distress - Cardiovascular Cardiovascular exam: Present: RRR, +S1, +S2. Absent: tachycardia - GI/Abdominal GI/Abdominal exam: Present: normal bowel sounds, soft. Absent: rebound, rigid, tenderness - Extremities Exam Extremities exam: Absent: calf tenderness, pedal edema, tenderness - Back Exam Back exam: Absent: CVA tenderness (L), CVA tenderness (R) - Neurological Exam Neurological exam: Present: alert - Psychiatric Psychiatric exam: Present: depressed Internal Medicine: Result - Labs CBC & Chem 7: 06/23/17 04:34 06/23/17 04:34 - VTE Documentation of Mechanical Device: Graduated compression elastic hosiery Consult Discharge Plan - Plan Referrals: Kelly Willett MD [Primary Care Provider] -
[2017-06-23] MEDS: Ampicillin/Sulbactam 1,500 MG in 0.9 % Sodium Chloride Mini Bag 100 ML IVPB SCH ×3 (15:56→23:35)
[2017-06-23] MEDS: Levofloxacin 750 MG/150 ML 750 MG/150 ML BAG IVPB SCH (17:55)
[2017-06-23] MEDS: Mirtazapine 15 MG TABLET PO SCH (21:52)
[2017-06-23] MEDS: Aspirin Enteric Coated 325 MG Tablet PO SCH (21:52)
[2017-06-24] MEDS: Ipratropium/Albuterol Neb 3 ML IH SCH ×6 (03:37→23:39)
[2017-06-24] MEDS: *HR* Enoxaparin 40 MG/0.4 ML SYRINGE SQ SCH (06:11)
[2017-06-24] MEDS: Ampicillin/Sulbactam 1,500 MG in 0.9 % Sodium Chloride Mini Bag 100 ML IVPB SCH ×4 (06:12→23:54)
[2017-06-24] MEDS: Levothyroxine 25 MCG TABLET PO SCH (06:13)
[2017-06-24] MEDS: Budesonide/Formoterol 160/4.5 MDI IH SCH ×2 (07:39→19:53)
[2017-06-24] MEDS: predniSONE 20 MG TABLET PO SCH (08:43)
[2017-06-24] MEDS: BuPROPion XL (24 HR) 150 MG TABLET PO SCH (08:43)
--- NOTE | 2017-06-24 12:36 | Internal Med Progress Note ---
Date of Encounter: 06/24/17 Time of Encounter: 10:30 - Assessment and plan (1) Pneumonia Current Visit: Yes Status: Acute Assessment and plan: Mostly aspiration pna Speech / swallow eval Speech suggested for pureed thick diet No IVF Duoneb + O2 Empirical abx Levaquin + Unasyn too since he is high risk for aspiration Qualifiers: Pneumonia type: due to unspecified organism Laterality: right Lung location: lower lobe of lung Qualified Code(s): J18.1 - Lobar pneumonia, unspecified organism (2) Acute on chronic respiratory failure with hypoxia Current Visit: Yes Status: Acute Assessment and plan: currently on 3 lit o2 cont Duoneb + O2 He does use O2 as needed basis at SNF as per pt. (3) Pulmonary edema Current Visit: Yes Status: Acute Assessment and plan: could be due to Pneumonia. Reviewed 2 D Echo from 05/2015 showed preserved LVEF, mild diastolic dysfunction 2 D Echo - P Received Lasix 20 mg IV x 1 dose so far Will give Lasix PRN for now Qualifiers: Chronicity: acute Qualified Code(s): J81.0 - Acute pulmonary edema (4) Acute exacerbation of chronic obstructive airways disease Current Visit: Yes Status: Acute Assessment and plan: mild exacerbation cont PO steroids for now cont Duoneb ad O2 (5) Melanoma Current Visit: Yes Status: Chronic Assessment and plan: f/u with heme onc as an out pt Qualifiers: Melanoma location: scalp Qualified Code(s): C43.4 - Malignant melanoma of scalp and neck (6) Generalized weakness Current Visit: Yes Status: Chronic Assessment and plan: due to PNA continue symptomatic and supportive care (7) DVT prophylaxis Current Visit: No Status: Acute Assessment and plan: on Lovenox - Subjective Interval history: Mr. Florence is a 77 year old male with a past medical history of COPD, CAD, CVA, GERD, hyperlipidemia, HTN who presents for a two-day history of increased shortness of breath. Pt has home oxygen requirement of 3L. Pt is more alert, awake and O x 3 denied any CP. Denied any cough. No events over night - Constitutional Vitals: Temp Pulse Resp BP Pulse Ox 97.9 F 81 16 122/59 97 06/24/17 11:51 06/24/17 11:51 06/24/17 11:51 06/24/17 11:51 06/24/17 11:51 General appearance: Present: cooperative, A&O X 3, answers questions appropriately - Head Head exam: Present: atraumatic, normal inspection - Neck Neck exam general surgery: Present: supple - Respiratory Respiratory exam: Present: decreased breath sounds. Absent: rales, respiratory distress, rhonchi, wheezes - Cardiovascular Cardiovascular exam: Present: RRR, +S1, +S2. Absent: tachycardia - GI/Abdominal GI/Abdominal exam: Present: normal bowel sounds, soft. Absent: rebound, rigid, tenderness - Extremities Exam Extremities exam: Absent: calf tenderness, pedal edema, tenderness - Back Exam Back exam: Absent: CVA tenderness (L), CVA tenderness (R) - Neurological Exam Neurological exam: Present: alert, oriented X3 - Psychiatric Psychiatric exam: Present: depressed Internal Medicine: Result - Labs CBC & Chem 7: 06/23/17 04:34 06/23/17 04:34 - Impressions Impressions Echocardiogram 06/23/17 10:40 Impressions: LVEF 55-60%. Mild left ventricular diastolic dysfunction. Normal right ventricular structure and function. Mild aortic regurgitation. No pulmonary hypertension by TR gradient. IVC is not optimally visualized. Left Ventricular Wall Motion: Rest Echo Findings All wall segments showed normal motion. Findings: Study Quality * Technically challenging due to COPD. ECG Findings * Normal sinus rhythm. Left Ventricle * LVEF 55-60%. * Normal LV chamber size, wall thickness and function. * Mild left ventricular diastolic dysfunction. Right Ventricle * Normal right ventricular structure and function. Left Atrium * Normal left atrial size. Right Atrium * Normal right atrial size. Aortic Valve * Aortic valve not well visualized. * No aortic stenosis. * Mild aortic regurgitation. Mitral Valve * No mitral stenosis. * Trace mitral regurgitation. * Mitral valve not well visualized. Tricuspid Valve * Tricuspid valve not well visualized. * Trace tricuspid regurgitation. Interatrial Septum * Interatrial septum not well evaluated. Pulmonic Valve * Pulmonic valve is not well visualized. * No pulmonic regurgitation. * Suboptimal Doppler evaluation. Pulmonary Artery * Pulmonary artery not well visualized. Aorta * Not well visualized. Pericardium * There is no pericardial effusion present. IVC * The IVC is not well evaluated. - VTE Documentation of Mechanical Device: Graduated compression elastic hosiery Consult Discharge Plan - Plan Referrals: Kelly Willett MD [Primary Care Provider] - (Patient will follow up with ECF PCP)
[2017-06-24] MEDS: Levofloxacin 750 MG/150 ML 750 MG/150 ML BAG IVPB SCH (17:34)
[2017-06-24] MEDS: Aspirin Enteric Coated 325 MG Tablet PO SCH (20:30)
[2017-06-24] MEDS: Mirtazapine 15 MG TABLET PO SCH (20:30)
[2017-06-24 22:20] LABS: Adenovirus Not Detected (Not Detect); Bordetella Pertussis Not Detected (Not Detect); Chlamydophila pneumoniae Not Detected (Not Detect); Coronavirus 229E Not Detected (Not Detect); Coronavirus HKU1 Not Detected (Not Detect); Coronavirus NL63 Not Detected (Not Detect); Coronavirus OC43 Not Detected (Not Detect); Human Metapneumovirus Not Detected (Not Detect); Human Rhinovirus/Enterovirus Not Detected (Not Detect); Influenza A Subtype 2009 H1 Not Detected (Not Detect); Influenza A Untypeable Not Detected (Not Detect); Influenza B Not Detected (Not Detect); Mycoplasma pneumoniae Not Detected (Not Detect); Parainfluenza Virus 1 Not Detected (Not Detect); Parainfluenza Virus 2 Not Detected (Not Detect); Parainfluenza Virus 3 Not Detected (Not Detect); Parainfluenza Virus 4 Not Detected (Not Detect); Respiratory Syncytial Virus Not Detected (Not Detect)
[2017-06-25] MEDS: Ipratropium/Albuterol Neb 3 ML IH SCH ×4 (03:53→15:37)
[2017-06-25] MEDS: *HR* Enoxaparin 40 MG/0.4 ML SYRINGE SQ SCH (05:47)
[2017-06-25] MEDS: Levothyroxine 25 MCG TABLET PO SCH (05:47)
[2017-06-25] MEDS: Ampicillin/Sulbactam 1,500 MG in 0.9 % Sodium Chloride Mini Bag 100 ML IVPB SCH ×2 (05:47→12:05)
[2017-06-25] MEDS: Budesonide/Formoterol 160/4.5 MDI IH SCH (07:33)
[2017-06-25 09:02] LABS: Basophils # 0.1 K/mcL (0.0-0.2); Basophils % 0.7 %; Eosinophils # 0.1 K/mcL (0.0-0.6); Hematocrit 39.7 % (37.5-50.1); Hemoglobin 13.2 g/dL (12.9-16.9); Immature Granulocytes % 6.6 % (0-4); Lymphocytes # 2.4 K/mcL (0.6-4.6); Mean Corpuscular HGB Conc 33.2 g/dL (31.6-35.5); Mean Corpuscular Hemoglobin 32.1 pg (28.0-33.3); Mean Corpuscular Volume 96.6 fL (83.0-100.0); Mean Platelet Volume 9.9 fL (9.4-12.4); Monocytes # 0.6 K/mcL (0.0-1.3); Monocytes % 4.8 %; Platelet Count 249 K/mcL (140-400); Red Blood Count 4.11 M/mcL (4.19-5.50); Red Cell Distribution Width 17.2 % (11.5-14.5); Segmented Neutrophils % 66.9 %
[2017-06-25 09:03] LABS: Neutrophils # 8.2 K/mcL (1.6-8.9)
[2017-06-25 09:58] LABS: Platelet Estimate Normal (Normal)
[2017-06-25 10:41] VITALS: BP 111/62
[2017-06-25 10:41] LABS: BUN/Creatinine Ratio 17 (6-26); Blood Urea Nitrogen 15 mg/dL (8-23); Calcium 8.9 mg/dL (8.6-10.3); Carbon Dioxide 22 mEq/L (23-29); Chloride 102 mEq/L (98-107); Glucose 110 mg/dL (70-105); Osmolality,Calculated 291 (280-300); Potassium 4.6 mEq/L (3.5-5.1); Sodium 140 mEq/L (136-145); eGFR For African Americans > 60 (> 60); eGFR For Non-African Americans > 60 (> 60)
[2017-06-25] MEDS: BuPROPion XL (24 HR) 150 MG TABLET PO SCH (12:00)
[2017-06-25] MEDS: predniSONE 20 MG TABLET PO SCH (12:00)
--- NOTE | 2017-06-25 13:14 | Discharge Summary ---
- NOTES TO OUTPATIENT PROVIDER Notes to Outpatient Provider: f/u with PCP in one week. Cont Abx Augmentin for 4 more days. High risk for aspiration - follow strict aspiration precautions. Mechinal soft diet only Orders not resulted at time of discharge: Pending orders 06/24/17 08:30 Magnesium AM 0400 Date of Encounter: 06/25/17 Time of Encounter: 13:10 - Discharge Diagnosis (1) Pneumonia Priority: Primary Status: Acute Qualifiers: Pneumonia type: due to unspecified organism Laterality: right Lung location: lower lobe of lung Qualified Code(s): J18.1 - Lobar pneumonia, unspecified organism (2) Acute on chronic respiratory failure with hypoxia Priority: Primary Status: Acute (3) Pulmonary edema Priority: Primary Status: Acute Qualifiers: Chronicity: acute Qualified Code(s): J81.0 - Acute pulmonary edema (4) Acute exacerbation of chronic obstructive airways disease Priority: Primary Status: Acute (5) Melanoma Priority: Secondary Status: Chronic Qualifiers: Melanoma location: scalp Qualified Code(s): C43.4 - Malignant melanoma of scalp and neck (6) Generalized weakness Priority: Secondary Status: Chronic (7) DVT prophylaxis Priority: Secondary Status: Acute (8) Diastolic CHF, acute Priority: Primary Status: Resolved Hospital course: Mr. Florence is a 77 year old male with a past medical history of COPD, CAD, CVA, GERD, hyperlipidemia, HTN who presents for a two-day history of increased shortness of breath. His CXR showed pneumonia and pulmonary edema. He was admitted in the hospital and started him on empirical abx, his symptoms started improivng slowly. His Resp viral panel did not show any virus. Continued him on Levaquin and Unasyn abx. He did received 2 doses of Lasix. Pt is more alert, awake and O x 3 denied any CP. Denied any cough. Feels like back to base line and wanted to go back to SNF today. His 2 D Echo showed preserved LVEF and mild diastolic dysfunction. So started him on Lasix 20mg PO daily. He was evaluated by speech here and suggested for mechanical soft diet only. - Time Spent with Patient Total time spent providing and/or coordinating discharge services: - Discharge Medications Prescriptions: Amoxicillin/Clavulanate [Augmentin] 875 mg PO BIDWM #8 tablet Furosemide [Lasix] 20 mg PO DAILY #30 tablet predniSONE [PredniSONE] 40 mg PO DAILY #10 tablet Home Medications: Budesonide/Formoterol 160/4.5 [Symbicort 160/4.5] 2 puff IH BIDR 05/06/15 [ History] Bupropion HCl [Wellbutrin Xl] 300 mg PO QAM 05/06/15 [History] Citalopram Hydrobromide [Celexa] 40 mg PO QAM 05/06/15 [History] Montelukast [Singulair] 10 mg PO HS 05/06/15 [History] Ranitidine HCl [Zantac] 150 mg PO BID 05/06/15 [History] Simvastatin [Zocor] 40 mg PO HS 05/06/15 [History] Albuterol Neb [Proventil Neb] 2.5 mg IH Q4HR PRN 07/01/15 [History] Albuterol Sulfate [Albuterol Inhaler] 2 puff IH Q6HR PRN 07/01/15 [History] Cholecalciferol (Vitamin D3) [Vitamin D3] 2,000 unit PO DAILY 07/01/15 [History] Oxygen 2 l NS AD PRN 07/01/15 [History] Tamsulosin [Flomax] 0.4 mg PO HS 09/09/15 [History] Docusate Sodium [Stool Softener] 250 mg PO BID PRN 02/13/17 [History] Dexamethasone [Decadron] 4 mg PO DAILY 04/07/17 [History] Levothyroxine [Synthroid] 25 mcg PO 0630 04/07/17 [History] Nitroglycerin [Nitrostat] 0.4 mg SL Q5M PRN 04/07/17 [History] Acetaminophen [Tylenol] 650 mg PO Q4H PRN 06/22/17 [History] Aspirin Enteric Coated [Aspirin EC] 325 mg PO HS 06/22/17 [History] Mirtazapine [Remeron] 15 mg PO HS 06/22/17 [History] Amoxicillin/Clavulanate [Augmentin] 875 mg PO BIDWM #8 tablet 06/25/17 [Rx] Furosemide [Lasix] 20 mg PO DAILY #30 tablet 06/25/17 [Rx] Metoprolol [Lopressor] 12.5 mg PO BID #0 tablet 06/25/17 [Rx] predniSONE [PredniSONE] 40 mg PO DAILY #10 tablet 06/25/17 [Rx] Allergies/Adverse Reactions: 3 Allergy/AdvReac Type Severity Reaction Status Date / Time No Known Allergies Allergy Verified 09/09/15 06:55 Date of admission: 06/23/17 05:22 Primary care physician: Kelly Willett, Consults: 06/23/17 12:42 Consult to Occupational Therapy [CONS] Routine Comment: Evaluate, develop and implement POC Reason for Consult: poss return to ecf Does patient have active BEDREST order?: No Is patient medically & hemodynamically stable?: Yes Patient assessed for mobility or mobilized this visit?: Yes Consult to Physical Therapy [CONS] Routine Comment: Evaluate, develop and implement POC Reason for Consult: poss return to ecf Does patient have active BEDREST order?: No Is patient medically & hemodynamically stable?: Yes Patient assessed for mobility or mobilized this visit?: Yes Consult to Personal Care Aide [CONS] Routine Reason for SW Consult: poss rtn ecf - Constitutional Vitals: Temp Pulse Resp BP Pulse Ox 97.8 F 48 18 111/62 92 06/25/17 10:39 06/25/17 10:39 06/25/17 11:06 06/25/17 10:39 06/25/17 12:27 General appearance: Present: cooperative, A&O X 3, answers questions appropriately - Head Head exam: Present: atraumatic, normal inspection - Neck Neck exam general surgery: Present: supple - Respiratory Respiratory exam: Present: decreased breath sounds, wheezes (mild). Absent: rales, respiratory distress, rhonchi - Cardiovascular Cardiovascular exam: Present: RRR, +S1, +S2. Absent: tachycardia - GI/Abdominal GI/Abdominal exam: Present: normal bowel sounds, soft. Absent: rebound, rigid, tenderness - Extremities Exam Extremities exam: Absent: calf tenderness, pedal edema, tenderness - Back Exam Back exam: Absent: CVA tenderness (L), CVA tenderness (R) - Neurological Exam Neurological exam: Present: alert, oriented X3 - Psychiatric Psychiatric exam: Present: normal affect, normal mood - Patient Status Disposition: Transfer SNF Condition: Good Overall status at discharge: patient is back to baseline - Discharge Instructions Follow Up With: Kelly Willett MD [Primary Care Provider] - (Patient will follow up with ECF PCP) - Diet and Activity Activity: increase activity as tolerated, wear oxygen at all times (2 lit) Diet: low salt diet - VTE Documentation of Mechanical Device: Graduated compression elastic hosiery
--- NOTE | 2017-06-25 13:15 | Physician Discharge Referral ---
ExtendedCare Referral Info Transfer To: ECF Provider in Charge after Transfer: PCP Institutional Level of Care: Skilled - Diagnosis (1) Pneumonia Status: Acute (2) Acute on chronic respiratory failure with hypoxia Status: Acute (3) Pulmonary edema Status: Acute (4) Acute exacerbation of chronic obstructive airways disease Status: Acute (5) Melanoma Status: Chronic (6) Generalized weakness Status: Chronic (7) DVT prophylaxis Status: Acute (8) Diastolic CHF, acute Status: Resolved - Transfer Medications Prescriptions: Amoxicillin/Clavulanate [Augmentin] 875 mg PO BIDWM #8 tablet Furosemide [Lasix] 20 mg PO DAILY #30 tablet predniSONE [PredniSONE] 40 mg PO DAILY #10 tablet Home Medications: Budesonide/Formoterol 160/4.5 [Symbicort 160/4.5] 2 puff IH BIDR 05/06/15 [ History] Bupropion HCl [Wellbutrin Xl] 300 mg PO QAM 05/06/15 [History] Citalopram Hydrobromide [Celexa] 40 mg PO QAM 05/06/15 [History] Montelukast [Singulair] 10 mg PO HS 05/06/15 [History] Ranitidine HCl [Zantac] 150 mg PO BID 05/06/15 [History] Simvastatin [Zocor] 40 mg PO HS 05/06/15 [History] Albuterol Neb [Proventil Neb] 2.5 mg IH Q4HR PRN 07/01/15 [History] Albuterol Sulfate [Albuterol Inhaler] 2 puff IH Q6HR PRN 07/01/15 [History] Cholecalciferol (Vitamin D3) [Vitamin D3] 2,000 unit PO DAILY 07/01/15 [History] Oxygen 2 l NS AD PRN 07/01/15 [History] Tamsulosin [Flomax] 0.4 mg PO HS 09/09/15 [History] Docusate Sodium [Stool Softener] 250 mg PO BID PRN 02/13/17 [History] Dexamethasone [Decadron] 4 mg PO DAILY 04/07/17 [History] Levothyroxine [Synthroid] 25 mcg PO 0630 04/07/17 [History] Nitroglycerin [Nitrostat] 0.4 mg SL Q5M PRN 04/07/17 [History] Acetaminophen [Tylenol] 650 mg PO Q4H PRN 06/22/17 [History] Aspirin Enteric Coated [Aspirin EC] 325 mg PO HS 06/22/17 [History] Mirtazapine [Remeron] 15 mg PO HS 06/22/17 [History] Amoxicillin/Clavulanate [Augmentin] 875 mg PO BIDWM #8 tablet 06/25/17 [Rx] Furosemide [Lasix] 20 mg PO DAILY #30 tablet 06/25/17 [Rx] Metoprolol [Lopressor] 12.5 mg PO BID #0 tablet 06/25/17 [Rx] predniSONE [PredniSONE] 40 mg PO DAILY #10 tablet 06/25/17 [Rx] Allergies/Adverse Reactions: 3 Allergy/AdvReac Type Severity Reaction Status Date / Time No Known Allergies Allergy Verified 09/09/15 06:55 - Respiratory Orders Smoking Cessation: Smoking cessation has been advised. For more information, call the [place] Tobacco Quit Line at 8-202-IOIF-NOW. CERTIFICATION: I certify that the transfer of the above named patient to an Extended Care Facility is necessary for the continuing treatment of the diagnosis listed. The above information is true and accurate reflection of patient's current condition. Confidential - Redisclosure prohibited without a patient's written consent.
== END 2017-06-25 16:29 | DRG 177 ==
LOC: 2ANU 15:49 → EMEROO 15:49 → 2ANU 21:28
PROVIDERS: ADMIT Internal Medicine Cardiovascular Disease; ATTEND Family Medicine